=== PATIENT | male | born 1950 | race Caucasian/White ===

== ENCOUNTER → 2022-03-30 16:07 | Outpatient (BNVA) | payer MEDICARE, SELFPAY | PROVIDERS: Visit Provider Nurse Practitioner Family | DX: F41.9 Anxiety disorder, unspecified (principal); G20 Parkinson's disease | CPT/HCPCS: 99212 ==

== ENCOUNTER → 2022-11-07 15:08 | Outpatient (BNVA) | payer MEDICARE, SELFPAY | PROVIDERS: Visit Provider Nurse Practitioner Family | DX: G20 Parkinson's disease (principal); K59.00 Constipation, unspecified; F41.9 Anxiety disorder, unspecified | CPT/HCPCS: 99212 ==

== ENCOUNTER → 2023-02-12 15:01 | Outpatient (BNVA) | payer MEDICARE, SELFPAY | PROVIDERS: Visit Provider Nurse Practitioner Family | DX: G20 Parkinson's disease (principal); F41.9 Anxiety disorder, unspecified | CPT/HCPCS: 99212 ==

== ENCOUNTER → 2023-02-14 16:12 | Outpatient (BNVA) | payer MEDICARE, SELFPAY | PROVIDERS: Visit Provider Nurse Practitioner Family | DX: K59.03 Drug induced constipation (principal); R10.13 Epigastric pain; G20 Parkinson's disease; F41.9 Anxiety disorder, unspecified | CPT/HCPCS: 99202 ==

== ENCOUNTER 2023-03-30 13:35 | Outpatient (AMB) | payer MEDICARE, SELFPAY ==
--- NOTE | 2023-03-30 13:37 | MHC.OFFVIS ---
Intake Vital Signs 03/30/23 13:38 Height 5 ft 10 in Weight 150 lb 6 oz BMI 21.6 BP 108/70 Blood Pressure Location Lt brachial Position Sitting Pulse 69 Pulse Source Pulse Oximeter Pulse Oximetry (%) 94 Oxygen Delivery Method Room Air Intake Visit Reasons: Follow up for Parkinson's - Confirmed Intake Note: Pt presents as a f/u for Parkinsons. Pt states shaking, and real bad anxiety. Pt states he hasn't seen his son or talked to him on the phone in over 10 years. Pt states the new med is making a good difference. pt states he feels good today. 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 Accompanied by: Nephew or Niece Allergies aspirin [Aspirin] Allergy (Unknown, Verified 03/30/23 13:42) UNKNOWN Penicillins Allergy (Unknown, Verified 03/30/23 13:42) UNKNOWN Medication List - Last Reconciled 03/30/23 by DANIELA Mauricio carbidopa-levodopa 36.25-145 mg ER (Rytary) 3 caps QID at 8am, 12pm, 4pm, 8 pm, and 1 cap daily at midnight orally 30 days citalopram 10 mg PO DAILY ketoconazole 2% topical lorazepam 0.5 - 1 mg orally 5 times a day 30 days magnesium hydroxide (Milk of Magnesia) 5 mL PO DAILY PRN magnesium oxide 400 mg PO BEDTIME pimavanserin (Nuplazid) 34 mg PO DAILY 30 days polyethylene glycol 3350 (Miralax) 17 grams PO DAILY 30 days quetiapine 25 mg PO BEDTIME sennosides (Natural Senna Laxative) 17.2 mg (2 x 8.6 mg) PO BEDTIME HPI HPI Comments History of Present Illness Details 72-yr-old male presents for f/u visit, pt is accompanied by his nephew. Pt denies any significant interval medical history changes. However, he did call the office last week, after he had a panic attack while walking into a grocery store and had to leave. Dr Antonio started him on Citalopram 10mg qd- which he and his nephew feels like it is helping some already. He tried to decrease the Lorazepam by 1/2 tab per day and states he did not tolerate. Today, pt's primary concern is r/t his relationship w/ his son- who does not speak to him. He evidently was seeing a therapist, but stopped once the therapist declined to directly call his son on behalf of the pt. Pt does state that tremor is managed w/ his Rytary- although it varies. No bothersome hallucinations. Pt's current PD medication regimen: Rytary 3 caps at 8-12-4-8 and 1 cap at 12am. May take 1 extra caps per day. Do medication effects last between doses: Sometimes wears off PFSH Surgical History No pertinent past surgical history Family History Mother Cancer Social History (Updated 03/30/23 @ 13:43 by Jana Richardson CMA) Alcohol intake: never Patient Tobacco Use Status: Never used Tobacco Review of Systems Const All systems reviewed & are unremarkable except as noted in HPI and below Physical Exam Vital Signs: Last Vital Signs Pulse 69 03/30/23 13:38 BP 108/70 03/30/23 13:38 Pulse Ox 94 03/30/23 13:38 Oxygen Delivery Method Room Air 03/30/23 13:38 BMI result Body Mass Index 21.6 Const General: cooperative and no acute distress Orientation/consciousness: oriented to person, oriented to place and oriented to time HEENT Face and sinus: Yes other (Decreased expression and blink) Resp Effort & Inspection: normal respiratory effort and able to speak in complete sentences Cardio Rate: regular rate Rhythm: regular rhythm Neuro Other: Expression: Decreased expression and blink Voice: Soft Tremor: BUE rest tremor Tone: Mild UE tone Dyskinesia: None FFM: Bradykinesia Foot taps: Bradykinesia Gait: Stands easily w/ hands, slight stoop, decreased arm swing, shorter steps, steady gait. Psych: Perseverating, crying at times. General: oriented to person, oriented to place and oriented to time Psych Mental Status: mental status grossly normal Speech and movement: Normal speech and movement present Affect: normal affect Attitude: cooperative Thought process: Normal thought process present Assessment & Plan Assessment & Plan (1) Parkinson's disease: Comment: Ryann positive (2014) Code(s): G20 - Parkinson's disease (2) Anxiety: Code(s): F41.9 - Anxiety disorder, unspecified Plan Continue Citalopram 10mg qd- nephew to update me in 6 weeks w/ status update. For now, continue Lorazepam 1mg 5 x's per day- decrease by 0.5mg per day every 1-2 weeks. Pt should continue to see a psychologist. Continue Rytary 145mg cap- 3 caps QID and 1 cap q 12am. He may take max of 2 extra caps per day. Take w/ small amt CHO. Continue Quetiapine 25mg qhs. Continue Nuplazid 34mg qd. Miralax /-1/2 dose qd- hold for loose stools. f/u in 3 months or sooner prn Coding Level of Care Code Est Pt Level 4 (47639) Diagnoses Parkinson's disease G20 Anxiety F41.9
[2023-03-30 13:38] VITALS: BP 108/70; PULSE 69; O2SAT 94; BMI 21.6
== END 2023-03-30 14:31 | disposition home or self-care (01) ==
PROVIDERS: Visit Provider Nurse Practitioner Family
DX: G20 Parkinson's disease (principal); F41.9 Anxiety disorder, unspecified
CPT/HCPCS: 99214

== ENCOUNTER → 2023-03-30 13:35 | Outpatient (BNVA) | payer MEDICARE, SELFPAY | PROVIDERS: Visit Provider Nurse Practitioner Family | DX: G20 Parkinson's disease (principal); F41.9 Anxiety disorder, unspecified | CPT/HCPCS: 99212 ==

== ENCOUNTER 2023-05-22 14:18 | Outpatient (AMB) | payer MEDICARE, SELFPAY ==
--- NOTE | 2023-05-22 14:33 | A.OFFVIS_ITS ---
Intake Vital Signs 05/22/23 14:34 Height 5 ft 10 in Weight 141 lb 1.533 oz BMI 20.2 BP 108/64 Blood Pressure Location Lt brachial Position Sitting Pulse 69 Intake Visit Reasons: Follow up Constipation Intake Note: Jameel presents in the office as a follow up for constipation. CC: He has some on and off again stomach pains. Nephew is not sure if it is due to his Parkinson's or the medication. He states that a couple weeks ago his BM were like brown water. He states that he is scared because he is having issues with his breathing. 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 Patient was encouraged to take MiraLax every day in the morning and take magnesium at night time. However if patient will continue to have constipation we can send him script for senna. Patient was also encouraged to increase fluid intake and activity to promote better bowel motility. Postprandial epigastric pain Patient reports postprandial abdominal discomfort. Will start him on Pepcid. Will check lipase, CMP, check vitamin B12, folate, vitamin-D level. Will start him on famotidine. Patient can take that in the morning before breakfast. Discu ssed with patient and his nephew about avoiding dietary triggers in late night snacking. Staying upright for 3 hours after meals discussed with patient. I will see patient in 5 weeks, sooner on as needed basis. Patient is agreeable to this plan and verbalizes understanding of instructions. He was given the opportunity to ask questions and all questions answered. TODAY'S VISIT Patient is here today for follow-up. Patient is accompanied by his nephew. Patient reports that he continues to have constipation. However patient does admit that occasionally he will have loose stools. Patient reports to be constipated for couple of days and then he will have watery stool. Patient denies melena, hematochezia, unintentional weight loss or ribbon like stools. Patient reports to be very anxious. Trying to figure out moving to [place]. Patient reports abdominal bloating and discomfort. Patient feels like the pain moves around feels more like cramping. Patient denies any nausea or vomiting. Patient denies any dyspepsia, dysphagia or odynophagia. [facility] Surgical History No pertinent past surgical history Family History Mother Cancer Social History Alcohol intake: never Patient Tobacco Use Status: Never used Tobacco Review of Systems Const Denies weight gain and Denies weight loss ENT Reports no additional complaints, Denies dysphagia and Denies odynophagia Card Reports no additional complaints Resp Reports no additional complaints GI Denies abdominal pain, Denies belching, Denies melena, Denies bloating, Denies change in bowel habits, Reports constipation, Denies dysphagia, Denies excessive flatus, Denies dyspepsia, Denies heartburn, Denies diarrhea, Reports loose stools (Occasional), Denies nausea, Denies odynophagia and Denies vomiting Reports no additional complaints Musc Reports no additional complaints Neuro Reports no additional complaints Psych Reports no additional complaints Endo Reports no additional complaints Physical Exam Vital Signs: Last Vital Signs Pulse 69 05/22/23 14:34 BP 108/64 05/22/23 14:34 BMI result Body Mass Index 20.2 Const General: healthy appearing, no acute distress and well developed Nutritional Appearance: well nourished Orientation/consciousness: patient oriented x3 HEENT Head: Yes normal to inspection, Yes normocephalic and Yes atraumatic Face and sinus: Yes normal facial exam Mouth: Normal oral and palatal mucosa present Throat: Yes posterior oropharynx normal, Yes tonsils normal and Yes uvula midline Eyes General: appearance normal, both eyes and all related structures Neck Neck: Yes normal visual inspection, Yes full ROM and Yes trachea midline Thyroid: Thyroid normal Resp Effort & Inspection: normal respiratory effort, able to speak in complete sentences, no tracheal deviation and symmetric chest movement Auscultation: clear to auscultation bilaterally Cardio Rate: regular rate Heart sounds: S1 normal heart sound present and S2 normal heart sound present GI Inspection: Yes normal to inspection and No distended Palpation (GI): Soft to palpation, not firm, nontender and No hepatosplenomegaly present Auscultation: normal bowel sounds General: Yes no CVA tenderness Back/Spine/Pelvis Back: no CVA tenderness Skin General skin exam: elasticity normal, turgor normal and dry skin Neuro General: patient oriented x3 Psych Appearance: grossly normal Mental Status: mental status grossly normal Assessment & Plan Assessment & Plan (1) Constipation: Code(s): K59.00 - Constipation, unspecified Qualifiers: Constipation type: drug induced constipation Qualified Code(s): K59.03 - Drug induced constipation (2) Postprandial epigastric pain: Code(s): R10.13 - Epigastric pain (3) Abdominal bloating: Code(s): R14.0 - Abdominal distension (gaseous) Plan: Patient is unable to move his bowels completely. Will start him on Dulcolax tablets. Patient's nephew will call the office if patient will continue to be constipated. Discussed with patient eating more fiber. Avoid lactose. Low FODMAP diet discussed with patient and his nephew. List of food recommended as well as list of food to avoid given to patient. Patient was encouraged to going get his labs done that were ordered last visit. I will see patient in 3 months, sooner on as needed basis. Patient is agreeable to this plan and verbalizes understanding of instructions. He was given the opportunity to ask questions and all questions answered. Thank you for allowing me to participate in his care Please make sure that patient gets his blood work done before his next appointment Medications: New bisacodyl (Dulcolax (bisacodyl)) 10 mg (2 x 5 mg) PO BEDTIME 180 tabs 4RF Coding Level of Care Code Est Pt Level 4 (19094) Diagnoses Drug-induced constipation K59.03 Constipation type: drug induced constipation Postprandial epigastric pain R10.13 Abdominal bloating R14.0 Time Spent (min) 35 Comment 20 minutes spent with patient and additional 15 minutes spent reviewing his records.
[2023-05-22 14:34] VITALS: BP 108/64; PULSE 69; BMI 20.2
== END 2023-05-22 15:17 | disposition home or self-care (01) ==
PROVIDERS: Visit Provider Nurse Practitioner Family
DX: K59.03 Drug induced constipation (principal); R10.13 Epigastric pain; R14.0 Abdominal distension (gaseous)
CPT/HCPCS: 99214

== ENCOUNTER → 2023-05-22 14:18 | Outpatient (BNVA) | payer MEDICARE, SELFPAY | PROVIDERS: Visit Provider Nurse Practitioner Family | DX: K59.03 Drug induced constipation (principal); R10.13 Epigastric pain; R14.0 Abdominal distension (gaseous) | CPT/HCPCS: 99212 ==

== ENCOUNTER 2023-06-26 13:17 | Emergency (ER) | payer MEDICARE, SELFPAY ==
--- NOTE | ~2023-06-26 | XR_ITS ---
EXAMINATION: XR ABDOMEN KUB CLINICAL INDICATION: Rule out obstruction COMPARISON: None available. TECHNIQUE: AP view of the abdomen. FINDINGS: No dilated large or small bowel loops are evident. There is no detected free air. No radiopaque calculi are evident. The patient has undergone prior study lower lumbar laminectomy and fusion. Degenerative changes are noted in both hip joints. XR/XR KUB IMPRESSION: Normal bowel gas pattern.
--- NOTE | 2023-06-26 13:12 | PC.NURSE ---
pt has not arrived yet. awaiting
[2023-06-26 13:23] VITALS: BP 123/72; BP 135/65; PULSE 66; PULSE 70; RESP 20; TEMP 36.7; O2SAT 98; O2SAT 99; BMI 18.7
[2023-06-26 13:34] VITALS: BP 120/65; PULSE 68; RESP 16; TEMP 36.7; O2SAT 98
--- NOTE | 2023-06-26 15:31 | MHC.EDTECH ---
Nurse will draw labs.
[2023-06-26 15:42] VITALS: BP 103/67; PULSE 63; RESP 14; TEMP 36.7; O2SAT 96
--- NOTE | 2023-06-26 15:43 | PC.NURSE ---
md guerra came to bed to pepe pt- blood sent
[2023-06-26 15:46] LABS: MANUAL DIFF FLAG NO
[2023-06-26 15:48] LABS: Basophils Percent Auto 0.4 % (0-2); Eosinophils Percent Auto 0.7 % (0-4); Hematocrit 35.3 % (42.0-52.0); Hemoglobin 11.7 g/dl (14.0-18.0); Imm Gran Abs Auto 0.01 X10*3/uL (0.00-0.03); Imm Gran Pct Auto 0.2 % (0.0-0.4); Lymphocytes Absolute Auto 0.6 X10*3/uL (1.2-4.9); Lymphocytes Percent Auto 12.6 % (20-40); Mean Corpuscular HGB Conc 33.1 g/dl (31.0-36.0); Mean Corpuscular Hemoglobin 29.8 pg (27.0-33.0); Mean Corpuscular Volume 89.8 fL (80.0-98.0); Mean Platelet Volume 10.3 fL (9.4-12.4); Monocytes Absolute Auto 0.2 X10*3/uL (0.1-1.2); Monocytes Percent Auto 5.4 % (2-11); Neutrophils Absolute Auto 3.6 x10*3/uL (2.0-8.3); Neutrophils Percent Auto 80.7 % (45-73); Platelet Count 142 X10*3/uL (160-400); Red Blood Count 3.93 X10*6/uL (4.60-5.80); Red Cell Distribution Width 12.6 % (11.0-16.0); White Blood Count 4.5 X10*3/uL (4.8-10.8)
[2023-06-26 16:00] LABS: Lipase 24 U/L (8-78)
--- NOTE | 2023-06-26 16:00 | ED_ITS ---
HPI - General Adult General Chief complaint: General Medical Stated complaint: UPPER ABD PAIN, X2 WEEKS,CONSTIPATION PER EMS Time Seen by Provider: 06/26/23 15:30 Source: patient Mode of arrival: ambulatory Limitations: no limitations History of Present Illness HPI narrative: Patient felt constipated, took 2 ducolax and had increasing epigastric pain Onset (ago): hour(s) Related Data Home Medications Medication Instructions Recorded Confirmed ketoconazole 2 % shampoo topical 11/07/22 03/30/23 quetiapine 25 mg tablet 25 mg PO BEDTIME 11/07/22 03/30/23 magnesium hydroxide 400 mg/5 mL 5 ml PO DAILY PRN 02/12/23 03/30/23 oral suspension (Milk of Magnesia) lorazepam 1 mg tablet 0.5 - 1 mg PO 5XD 06/26/23 magnesium oxide 400 mg (241.3 mg 400 mg PO BEDTIME 06/26/23 magnesium) tablet Previous Rx's Medication Instructions Recorded pimavanserin 34 mg capsule 34 mg PO DAILY 30 days #30 caps 12/26/22 (Nuplazid) polyethylene glycol 3350 17 17 g PO DAILY 30 days #510 grams 02/14/23 gram/dose oral powder (Miralax) carbidopa ER 36.25 mg-levodopa 145 See Rx Instructions PO .COMPLEX 30 02/21/23 mg capsule,extended release days #390 caps (Rytary) bisacodyl 5 mg tablet,delayed 10 mg (2 x 5 mg) PO BEDTIME #180 05/22/23 release (Dulcolax (bisacodyl)) tabs citalopram 10 mg tablet 10 mg PO DAILY #30 tabs 05/24/23 pantoprazole 40 mg tablet,delayed 40 mg PO DAILY #20 tabs 06/26/23 release (Protonix) Allergies Allergy/AdvReac Type Severity Reaction Status Date / Time aspirin [Aspirin] Allergy Unknown UNKNOWN Verified 05/22/23 14:40 Penicillins Allergy Unknown UNKNOWN Verified 05/22/23 14:40 Review of Systems 2 Review of Systems: Yes all other systems are reviewed and are negative Neurologic: Denies Sensory deficit (Neuro) [facility] Past Medical History Surgical History No pertinent past surgical history Family History Family History Mother Cancer Social History Social History Alcohol intake: never Patient Tobacco Use Status: Never used Tobacco Smoked in Last 30 Days: No Use of substances other than those prescribed or required for medical reasons: No Advance Directives: Yes Advance Directives Information Provided: Yes Advance Directives on File: No Physical Exam ED Vital Signs: Vital Signs - 24 hr 06/26/23 13:23 06/26/23 13:34 06/26/23 15:42 Temperature 98.1 F 98.1 F 98.1 F Pulse Rate 66 68 63 Respiratory Rate 20 16 14 Blood Pressure 135/65 120/65 103/67 Pulse Oximetry 98 98 96 Oxygen Delivery Method Room Air Room Air Room Air 06/26/23 16:09 Temperature Pulse Rate 62 Respiratory Rate 12 Blood Pressure 111/76 Pulse Oximetry 96 Oxygen Delivery Method Room Air BMI result Body Mass Index 18.7 Const Other: ridgid looking older than stated age Nutritional Appearance: cachectic Orientation/consciousness: oriented to person and patient oriented x3 Limitations: no limitations HENMT Head: Yes normal to inspection Ears: external ears normal General nose exam: Normal external nose present Mouth: Normal oral and palatal mucosa present and oropharynx normal Throat: Yes posterior oropharynx normal Eyes General: appearance normal, both eyes and all related structures Neck Neck: Yes normal visual inspection Chest Chest palpation & inspection: normal inspection of the chest Resp Auscultation: clear to auscultation bilaterally Cardio Jugular venous distension: no JVD Rate: regular rate Rhythm: regular rhythm Heart sounds: S1 normal heart sound present and S2 normal heart sound present GI Other: scaphoid mild epigastric tenderness Auscultation: normal bowel sounds General: Yes no CVA tenderness Back/Spine/Pelvis Back: no CVA tenderness Skin General skin exam: no rashes or lesions noted Neuro Other: diffuse rigidity from parkinsonism General: oriented to person and patient oriented x3 Cranial nerves: Yes CN's II-XII intact bilaterally Sensory Exam: No Sensory deficit (Neuro) Extrem General: Yes normal to inspection Psych Appearance: grossly normal Medications Administered Discontinued Medications Generic Name Dose Route Start Last Admin Trade Name Freq PRN Reason Stop Dose Admin Famotidine 20 mg 06/26/23 15:38 06/26/23 16:07 Famotidine 20 Mg Tablet PO 06/26/23 15:39 20 mg ONCE ONE Administration Medical Decision Making Differential Diagnosis Differential Diagnoses: The differential diagnosis associated with the presentation includes (pancreatitis, gastritis, ulcer disease, sbo) Admission/Observation Consideration of admission/observation: Escalation of care including admission/observation considered (upon arrival patient was considered for admission) Lab Data 06/26/23 15:40 06/26/23 15:40 Labs: Lab Results 06/26/23 Range/Units 15:40 WBC 4.5 L (4.8-10.8) X10*3/uL RBC 3.93 L (4.60-5.80) X10*6/uL Hgb 11.7 L (14.0-18.0) g/dl Hct 35.3 L (42.0-52.0) % MCV 89.8 (80.0-98.0) fL MCH 29.8 (27.0-33.0) pg MCHC 33.1 (31.0-36.0) g/dl RDW 12.6 (11.0-16.0) % Plt Count 142 L (160-400) X10*3/uL MPV 10.3 (9.4-12.4) fL Immature Gran % (Auto) 0.2 (0.0-0.4) % Neut % (Auto) 80.7 H (45-73) % Lymph % (Auto) 12.6 L (20-40) % Gilchrist % (Auto) 5.4 (2-11) % Eos % (Auto) 0.7 (0-4) % Baso % (Auto) 0.4 (0-2) % Lymph # (Auto) 0.6 L (1.2-4.9) X10*3/uL Gilchrist # (Auto) 0.2 (0.1-1.2) X10*3/uL Eos # (Auto) 0.0 (0.0-0.4) X10*3/uL Baso # (Auto) 0.0 (0.0-0.2) X10*3/uL Abs Immat Gran (auto) 0.01 (0.00-0.03) X10*3/uL Absolute Neuts (auto) 3.6 (2.0-8.3) x10*3/uL Absolute Nucleated RBC 0.000 (0.0-0.012) X10*3/uL Nucleated RBC % (auto) 0.0 (0.0-0.2) /100WBC Sodium 140 (135-145) mmol/L Potassium 4.0 (3.3-5.1) mmol/L Chloride 104 (96-108) mmol/L Carbon Dioxide 32 H (22-29) mmol/L Anion Gap 8 L (12-20) BUN 15 (9-16) mg/dL Creatinine 0.70 (0.5-1.4) mg/dL Estim Creat Clear Calc 80.7 Estimated GFR > 60 Random Glucose 107 (60-115) mg/dL Calcium 8.7 (8.4-10.2) mg/dL Total Bilirubin 0.4 (0.0-1.0) mg/dL AST 12 (5-37) U/L ALT < 5 (0-40) U/L Alkaline Phosphatase 73 (39-117) U/L Total Protein 6.1 L (6.5-8.0) g/dL Albumin 3.8 (3.5-5.0) g/dL Lipase 24 (8-78) U/L Tests considered The following testing was considered but not selected: CT of abdomen considered but no fever, no WBC, no pancreatitis Chronic Conditions Patient?s care impacted by: Other (parkinsonism) Discharge Plan Discharge Clinical Impression: Gastritis Patient Disposition: Still a Patient Instructions: Gastritis (ED) Prescriptions: New pantoprazole [Protonix] 40 mg tablet,delayed release (DR/EC) 40 mg PO DAILY Qty: 20 0RF No Action Nuplazid 34 mg capsule 34 mg PO DAILY 30 Days Qty: 30 6RF Rytary 36.25-145 mg capsule, extended release See Rx Instructions PO .COMPLEX 30 Days Qty: 390 6RF Rx Instructions: 3 caps QID at 8am, 12pm, 4pm, 8 pm, and 1 cap daily at midnight orally citalopram 10 mg tablet 10 mg PO DAILY Qty: 30 0RF magnesium oxide 400 mg (241.3 mg magnesium) tablet 400 mg PO BEDTIME lorazepam 1 mg tablet 0.5 - 1 mg PO 5XD Rx Instructions: 1 mg orally 5 times a day; quetiapine 25 mg tablet 25 mg PO BEDTIME ketoconazole 2 % shampoo topical bisacodyl [Dulcolax (bisacodyl)] 5 mg tablet,delayed release (DR/EC) 10 mg PO BEDTIME Qty: 180 4RF magnesium hydroxide [Milk of Magnesia] 400 mg/5 mL suspension 5 ml PO DAILY PRN polyethylene glycol 3350 [Miralax] 17 gram/dose powder 17 g PO DAILY 30 Days Qty: 510 3RF Referrals: Physician,None [Primary Care Provider] - 5 days
[2023-06-26 16:03] LABS: Alanine Aminotransferase < 5 U/L (0-40); Albumin Level 3.8 g/dL (3.5-5.0); Alkaline Phosphatase 73 U/L (39-117); Anion Gap 8 (12-20); Aspartate Amino Transferase 12 U/L (5-37); Bilirubin Total 0.4 mg/dL (0.0-1.0); Blood Urea Nitrogen 15 mg/dL (9-16); Calcium 8.7 mg/dL (8.4-10.2); Carbon Dioxide 32 mmol/L (22-29); Chloride 104 mmol/L (96-108); Creatinine Clr Calc Pharmacy 80.7; Estimated Glomerular Filt Rate > 60; Glucose Random 107 mg/dL (60-115); Sodium 140 mmol/L (135-145); Total Protein 6.1 g/dL (6.5-8.0)
[2023-06-26] MEDS: Famotidine 20 MG TABLET PO (16:07)
[2023-06-26 16:09] VITALS: BP 111/76; PULSE 62; RESP 12; O2SAT 96
--- NOTE | 2023-06-26 16:17 | PHA.MEDREC ---
Pharmacy Consult ? Medication Reconciliation Pharmacy has completed the medication reconciliation. Patient reported specific times for all his medications. Report stop taking stool softener that was recently prescribed, bisacodyl. Patient stated he takes milk of mag every day at noon. Patient has Pimavanserin and Rytary with him. Pat Matta, RadhaD
[2023-06-26 17:44] VITALS: BP 121/64; PULSE 97; O2SAT 98
== END 2023-06-26 20:27 | disposition home or self-care (01) ==
PROVIDERS: Emergency Provider Emergency Medicine
DX: K29.70 Gastritis, unspecified, without bleeding (principal); R10.13 Epigastric pain; G20.A1 Parkinson's disease without dyskinesia, without mention of fluctuations; Z79.899 Other long term (current) drug therapy
CPT/HCPCS: 36415; 74018; 80053; 83690; 85025; 99283; 99284

== ENCOUNTER 2023-07-17 14:13 | Outpatient (AMB) | payer MEDICARE, SELFPAY ==
--- NOTE | 2023-07-17 14:14 | MHC.OFFVIS ---
Intake Vital Signs 07/17/23 14:15 Height 5 ft 10 in Weight 139 lb BMI 19.9 BP 116/62 Blood Pressure Location Rt brachial Position Sitting Pulse 68 Pulse Source Pulse Oximeter Pulse Oximetry (%) 99 Oxygen Delivery Method Room Air Intake Visit Reasons: Follow up for Parkinson [phone] Intake Note: Patient presents for follow up parkinson. Allergies aspirin [Aspirin] Allergy (Unknown, Verified 07/17/23 14:17) UNKNOWN Penicillins Allergy (Unknown, Verified 07/17/23 14:17) UNKNOWN HPI HPI Comments History of Present Illness Details 72-yr-old male presents for f/u visit, accompanied by his nephew, Juanito. Pt's primary concerns are: he continues to have upper GI burning pain, constipation a/w anxiety and increased tremor. Today he deneis any LLQ abd pain. The pain subsides some after having a BM but not always. He has had a 10 lb wt loss over the alst 6 months. He has seen [facility]- who suggested optimizing fluids, physical activity, and bowel regimen. He has had [facility] and [facility] evals. Pt states the work-up was normal. He now feels that using dulcolax suppository every few days, pepto-bismal 1 tsp- states can be helpful, but last [facility] visit was at end of Jun. He can still be anxious- nephew states it is unclear if anxiety is causing GI issues or GI issues are causing anxiety and tremor. He can be impulsive- for instance may have a strong urge to paint a room. Nephew is worried about some decreased insight- for instance recently was using paint thinner to remove epoxy from his fingers and wipe down his washer/dryer. He can still have hallucinations. He stopped the Citalopram- was causing worsening behaviors, angry. 06/26/23, XR/XR KUB IMPRESSION: Normal bowel gas pattern. 07/02/23, IMPRESSION: Moderate amount of stool throughout the colon. No acute abnormality. Chronically fractured L5 pedicle screws with slightly increased displacement of the left pedicular screw when compared to prior examination. Chronic degenerative changes at L4-L5 and L5-S1 as described above. PFSH Surgical History No pertinent past surgical history Family History Mother Cancer Social History Alcohol intake: never Patient Tobacco Use Status: Never used Tobacco Review of Systems Const All systems reviewed & are unremarkable except as noted in HPI and below Physical Exam Vital Signs: Last Vital Signs Pulse 68 07/17/23 14:15 BP 116/62 07/17/23 14:15 Pulse Ox 99 07/17/23 14:15 Oxygen Delivery Method Room Air 07/17/23 14:15 BMI result Body Mass Index 19.9 Const General: cooperative and no acute distress Resp Effort & Inspection: normal respiratory effort and able to speak in complete sentences Neuro Other: General: A&O Expression: Decreased expression and blink Voice: Soft Tremor: BUE rest tremor Tone: Mild UE tone Dyskinesia: None FFM: Bradykinesia Foot taps: Bradykinesia Gait: Stands easily w/ hands, slight stoop, decreased arm swing, shorter steps, steady gait. Psych: Pleasant affect. Assessment & Plan Assessment & Plan (1) Parkinson's disease without dyskinesia: Comment: Ryann positive (2014) Code(s): G20.A1 - Parkinson's disease without dyskinesia, without mention of fluctuations (2) Anxiety: Code(s): F41.9 - Anxiety disorder, unspecified (3) Constipation: Code(s): K59.00 - Constipation, unspecified Qualifiers: Constipation type: drug induced constipation Qualified Code(s): K59.03 - Drug induced constipation Plan Pt stopped Citalopram 10mg qd- not tolerated- caused mood changes. For now, continue Lorazepam 1mg 5 x's per day. Pt should continue to see a psychologist. Continue Rytary 145mg cap- 3 caps QID and 1 cap q 12am. He may take max of 2 extra caps per day. Take w/ small amt CHO. Continue Quetiapine 25mg qhs. Continue Nuplazid 34mg qd. For GI concerns- I will reach out to GI w/ ? further work-up/next steps. f/u in 3 months or sooner prn Coding Level of Care Code Est Pt Level 4 (50632) Diagnoses Parkinson's disease without dyskinesia G20.A1 Anxiety F41.9 Drug-induced constipation K59.03 Constipation type: drug induced constipation
[2023-07-17 14:15] VITALS: BP 116/62; PULSE 68; O2SAT 99; BMI 19.9
== END 2023-07-17 15:16 | disposition home or self-care (01) ==
PROVIDERS: Visit Provider Nurse Practitioner Family
DX: G20.A1 Parkinson's disease without dyskinesia, without mention of fluctuations (principal); F41.9 Anxiety disorder, unspecified; K59.03 Drug induced constipation
CPT/HCPCS: 99214

== ENCOUNTER → 2023-07-17 14:13 | Outpatient (BNVA) | payer MEDICARE, SELFPAY | PROVIDERS: Visit Provider Nurse Practitioner Family | DX: G20.A1 Parkinson's disease without dyskinesia, without mention of fluctuations (principal); K59.03 Drug induced constipation; F41.9 Anxiety disorder, unspecified | CPT/HCPCS: 99212 ==

== ENCOUNTER 2023-09-17 14:34 | Outpatient (AMB) | payer MEDICARE, SELFPAY ==
[2023-09-17 14:36] VITALS: BP 131/65; PULSE 69; BMI 19.8
--- NOTE | 2023-09-17 14:36 | A.OFFVIS_ITS ---
Intake Vital Signs 09/17/23 14:36 Height 5 ft 10 in Weight 138 lb 0.15 oz BMI 19.8 BP 131/65 Blood Pressure Location Lt brachial Position Sitting Pulse 69 Pulse Source Pulse Oximeter Intake Visit Reasons: 3 month follow up Intake Note: Pt presents to the office today for a 3 month follow up for stomach bloating. Pt states his stomach is bloated all the time. Pt states he is having trouble breathing but they think its due to his parkinsons. Pts nephew states that Jameel has stomach pain everyday in his upper abdomen. Pt states he does have nausea but no vomiting. He states he does have constipation occasionally. Pt states he does take dulcolax that helps. Allergies aspirin [Aspirin] Allergy (Unknown, Verified 09/17/23 14:40) UNKNOWN Penicillins Allergy (Unknown, Verified 09/17/23 14:40) UNKNOWN HPI 3 month follow up HPI Details LAST VISIT: Constipation Postprandial epigastric pain Abdominal bloating Patient is unable to move his bowels completely. Will start him on Dulcolax tablets. Patient's nephew will call the office if patient will continue to be constipated. Discussed with patient eating more fiber. Avoid lactose. Low FODMAP diet discussed with patient and his nephew. List of food recommended as well as list of food to avoid given to patient. Patient was encouraged to going get his labs done that were ordered last visit. I will see patient in 3 months, sooner on as needed basis. Patient is agreeable to this plan and verbalizes understanding of instructions. He was given the opportunity to ask questions and all questions answered. ? Thank you for allowing me to participate in his care ? Please make sure that patient gets his blood work done before his next appointment Plan Medications New bisacodyl (Dulcolax (bisacodyl)) 10 mg (2 x 5 mg) PO BEDTIME 180 tabs 4RF TODAY'S VISIT Patient is here today for follow-up. Patient is accompanied by his nephew who is also his CERTIFIED HEARING INSTRUMENT DISPENSER. Patient reports that he has trouble moving his bowels and the only thing that works is Dulcolax suppository. Patient states that he goes to the bathroom after taking almost immediately, however right after he goes to the bathroom he takes Pepto patient stopped taking pantoprazole. Denies any dyspepsia, dysphagia or odynophagia. Has not tried taking Dulcolax tablets as suggested in the past. Patient is following up with Neurology. Currently his go of antiparkinsonian medication was increased. Patient does have occasional tremors. Patient is waiting to hear from his dentist about partial dentures. Patient denies any melena, hematochezia, unintentional weight loss or ribbon like stools. Patient reports frequent bloating. Patient stopped drinking lactose milk, however he reports that he is eating cereal and lots of wheat products. FOR[facility]LY [facility] Surgical History No pertinent past surgical history Family History Mother Cancer Social History Alcohol intake: never Patient Tobacco Use Status: Never used Tobacco Review of Systems Const Denies weight gain and Denies weight loss ENT Reports no additional complaints, Denies dysphagia and Denies odynophagia Card Reports no additional complaints Resp Reports no additional complaints GI Reports abdominal pain (upper abdomen), Denies belching, Denies melena, Reports bloating, Denies change in bowel habits, Reports constipation, Denies dysphagia, Denies excessive flatus, Denies dyspepsia, Denies heartburn, Denies diarrhea, Denies loose stools, Denies nausea, Denies odynophagia and Denies vomiting Reports no additional complaints Musc Reports no additional complaints Neuro Reports no additional complaints Psych Reports no additional complaints Endo Reports no additional complaints Physical Exam Vital Signs: Last Vital Signs Pulse 69 09/17/23 14:36 BP 131/65 09/17/23 14:36 BMI result Body Mass Index 19.8 Const General: healthy appearing, no acute distress and well developed Nutritional Appearance: well nourished Orientation/consciousness: patient oriented x3 Resp Effort & Inspection: normal respiratory effort, able to speak in complete sentences, no tracheal deviation and symmetric chest movement Auscultation: clear to auscultation bilaterally Cardio Rate: regular rate GI Inspection: Yes normal to inspection and No distended Palpation (GI): Soft to palpation, not firm, nontender and No hepatosplenomegaly present Auscultation: normal bowel sounds General: Yes no CVA tenderness Back/Spine/Pelvis Back: no CVA tenderness Skin General skin exam: elasticity normal, turgor normal and dry skin Neuro General: patient oriented x3 Psych Appearance: grossly normal Mental Status: mental status grossly normal Assessment & Plan Assessment & Plan (1) Constipation: Code(s): K59.00 - Constipation, unspecified Qualifiers: Constipation type: drug induced constipation Qualified Code(s): K59.03 - Drug induced constipation (2) Postprandial epigastric pain: Code(s): R10.13 - Epigastric pain (3) Abdominal bloating: Code(s): R14.0 - Abdominal distension (gaseous) Plan Patient will start taking Dulcolax tablets daily, 1-2 tablets every evening. Patient was encouraged to increase fluid intake. Patient can take lactose-free protein shakes. Avoid dietary triggers. Low FODMAP diet discussed with patient. Patient does have a list of food to avoid home. Postprandial abdominal bloating script for simethicone sent. I will see patient in 1 month, sooner on as needed basis. Patient is agreeable to this plan and verbalizes understanding of instructions. He was given the opportunity to ask questions and all questions answered. Thank you for allowing me to participate in his care Medications: New simethicone 125 mg PO BID-QID PRN 120 caps 3RF abdominal distention bisacodyl (Dulcolax (bisacodyl)) 10 mg (2 x 5 mg) PO BEDTIME 180 tabs 4RF Discontinued pantoprazole (Protonix) Discontinued Reason: Patient Completed Course 40 mg PO DAILY 20 tabs 0RF Coding Level of Care Code Est Pt Level 3 (07214) Diagnoses Drug-induced constipation K59.03 Constipation type: drug induced constipation Postprandial epigastric pain R10.13 Abdominal bloating R14.0 Time Spent (min) 25 Comment 15 minutes spent with patient and additional 10 minutes spent reviewing his records
== END 2023-09-17 14:59 | disposition home or self-care (01) ==
PROVIDERS: Visit Provider Nurse Practitioner Family
DX: K59.03 Drug induced constipation (principal); R10.13 Epigastric pain; R14.0 Abdominal distension (gaseous)
CPT/HCPCS: 99213

== ENCOUNTER → 2023-09-17 14:34 | Outpatient (BNVA) | payer MEDICARE, SELFPAY | PROVIDERS: Visit Provider Nurse Practitioner Family | DX: R14.0 Abdominal distension (gaseous) (principal); R10.13 Epigastric pain; K59.03 Drug induced constipation; T50.905A Adverse effect of unspecified drugs, medicaments and biological substances, initial encounter | CPT/HCPCS: 99212 ==

== ENCOUNTER 2023-10-16 14:08 | Outpatient (AMB) | payer MEDICARE, SELFPAY ==
--- NOTE | 2023-10-16 14:10 | A.OFFVIS_ITS ---
Intake Vital Signs 10/16/23 14:11 Height 5 ft 10 in Weight 134 lb BMI 19.2 BP 108/74 Blood Pressure Location Rt brachial Position Sitting Pulse 76 Pulse Source Pulse Oximeter Pulse Oximetry (%) 97 Oxygen Delivery Method Room Air Intake Visit Reasons: 3 mo f/u - Parkinson-Conf Intake Note: Patient presents for 3 month follow up parkinson's. Im having issues breathing and shaking like crazy. Allergies aspirin [Aspirin] Allergy (Unknown, Verified 10/16/23 14:18) UNKNOWN Penicillins Allergy (Unknown, Verified 10/16/23 14:18) UNKNOWN Medication List - Last Reconciled 10/16/23 by Berenice Stokes, DANIELA bisacodyl 10 mg [place] DAILY PRN bisacodyl (Dulcolax (bisacodyl)) 10 mg (2 x 5 mg) PO BEDTIME bismuth subsalicylate 525 mg PO DAILY PRN calcium carbonate 500 mg PO BID PRN carbidopa-levodopa 36.25-145 mg ER (Rytary) 3 caps PO 0800,1200,1600,2000 carbidopa-levodopa 36.25-145 mg ER (Rytary) 1 cap PO 0000 lorazepam 1 mg orally 5 x's per day; 1 mg orally 5 times a day; 30 days magnesium hydroxide (Milk of Magnesia) 5 mL PO DAILY@1200 pimavanserin (Nuplazid) 34 mg PO DAILY 30 days quetiapine 25 mg PO DAILY@0000 simethicone 125 mg PO BID-QID PRN HPI HPI Comments History of Present Illness Details 72-yr-old male presents for f/u visit, a ccompanied by his nephew, Juanito. He does not currently have a PCP- again states this com writer is his PCP. He is having more SOB on exertion or when he is late to take his Rytary. Once he has SOB, his mouth is hanging open, and his arms and legs start shaking. He can sit and take breathe breathes over 5 min- which helps. Denies wheezing, coughing. Denies orthopnea, but sleeps in a recliner. His nephew is concerned about pt using harsh chemical cloth printing utility worker- specifically BH- 38 intensive shield cleaner. He is having pain in his feet, legs, and thighs- more so when off. The other day he slipped going down his stairs- nephew states he was running up and down the stairs. Pt continues to struggle with GI s/s- epigastric pain, constipation. He still having crown of head scabs, dry skin. He can still feel sad about still not seeing/speaking to his son. Has had some occasional hallucinations- may see a cat- has insight. He did recently take a CD-LD 25-100mg tab- makes him more compulsive. PFSH Surgical History No pertinent past surgical history Family History Mother Cancer Social History Alcohol intake: never Patient Tobacco Use Status: Never used Tobacco Review of Systems Const All systems reviewed & are unremarkable except as noted in HPI and below Physical Exam Vital Signs: Last Vital Signs Pulse 76 10/16/23 14:11 BP 108/74 10/16/23 14:11 Pulse Ox 97 10/16/23 14:11 Oxygen Delivery Method Room Air 10/16/23 14:11 BMI result Body Mass Index 19.2 Const General: cooperative and no acute distress Resp Effort & Inspection: normal respiratory effort and able to speak in complete sentences Auscultation: clear to auscultation bilaterally Cardio Rate: regular rate Rhythm: regular rhythm Neuro Other: General: A&O Expression: Decreased expression and blink Voice: Soft Tremor: BUE postural tremor Tone: Mild BUE tone Dyskinesia: None FFM: Bradykinesia Foot taps: Bradykinesia Gait: Stands easily w/ hands, slight stoop, decreased arm swing, shorter steps, steady gait. Psych: Pleasant affect. Assessment & Plan Assessment & Plan (1) Parkinson's disease without dyskinesia: Comment: Ryann positive (2014) Code(s): G20.A1 - Parkinson's disease without dyskinesia, without mention of fluctuations (2) Hallucinations: Code(s): R44.3 - Hallucinations, unspecified (3) Constipation: Code(s): K59.00 - Constipation, unspecified Qualifiers: Constipation type: drug induced constipation Qualified Code(s): K59.03 - Drug induced constipation (4) Anxiety: Code(s): F41.9 - Anxiety disorder, unspecified Plan Adjust Rytary 145mg cap from- 3 caps QID and 1 cap q 12am to 3 caps qam, 2 caps QID, and 1 cap q 12am. In hopes this imporves on time and SOB episodes w/o exacerbating hallucinations or compulsive behaviors. If SOB episodes persist/worsen- initiate CV/Resp work-up. Continue Quetiapine 25mg qhs. Continue Nuplazid 34mg qd. For now, continue Lorazepam 1mg 5 x's per day. Consider trial of mood stabilizer and then begin reducing Lorazepam use. Pt should continue to see a psychologist. Avoid all harsh household cloth printing utility worker. Try switching soap to sensitive skin Dove or other unscented soap. avoid anti- microbial/harsh soaps. F/u w/ GI as scheduled. ? f/u in 3 months or sooner prn Medications: Changed From carbidopa-levodopa 36.25-145 mg ER (Rytary) 3 caps QID at 8am, 12pm, 4pm, 8 pm, and 1 cap daily at midnight orally 3 caps PO 0800,1200,1600,2000 To carbidopa-levodopa 36.25-145 mg ER (Rytary) 3 caps qam and then 2 caps QID, and 1 cap q 12am (total 12 caps per day). orally 30 days 360 caps 3RF Coding Level of Care Code Est Pt Level 4 (76935) Diagnoses Parkinson's disease without dyskinesia G20.A1 Hallucinations R44.3 Drug-induced constipation K59.03 Constipation type: drug induced constipation Anxiety F41.9
[2023-10-16 14:11] VITALS: BP 108/74; PULSE 76; O2SAT 97; BMI 19.2
== END 2023-10-16 15:07 | disposition home or self-care (01) ==
PROVIDERS: Visit Provider Nurse Practitioner Family
DX: G20.A1 Parkinson's disease without dyskinesia, without mention of fluctuations (principal); R44.3 Hallucinations, unspecified; K59.03 Drug induced constipation; F41.9 Anxiety disorder, unspecified
CPT/HCPCS: 99214

== ENCOUNTER → 2023-10-16 14:08 | Outpatient (BNVA) | payer MEDICARE, SELFPAY | PROVIDERS: Visit Provider Nurse Practitioner Family | DX: G20.A1 Parkinson's disease without dyskinesia, without mention of fluctuations (principal); R44.3 Hallucinations, unspecified; K59.03 Drug induced constipation; F41.9 Anxiety disorder, unspecified | CPT/HCPCS: 99212 ==

== ENCOUNTER → 2023-12-03 15:42 | Outpatient (BNVA) | payer MEDICARE, SELFPAY | PROVIDERS: Visit Provider Nurse Practitioner Family | DX: G20.A1 Parkinson's disease without dyskinesia, without mention of fluctuations (principal); R10.9 Unspecified abdominal pain; R44.3 Hallucinations, unspecified; R46.89 Other symptoms and signs involving appearance and behavior; F41.9 Anxiety disorder, unspecified | CPT/HCPCS: 99212 ==

== ENCOUNTER 2023-12-03 15:43 | Outpatient (AMB) | payer MEDICARE, SELFPAY ==
--- NOTE | 2023-12-03 15:42 | A.OFFVIS_ITS ---
Vital Signs 12/03/23 15:43 Height 5 ft 10 in Weight 130 lb BMI 18.7 Pulse 68 Pulse Source Pulse Oximeter Pulse Oximetry (%) 99 Oxygen Delivery Method Room Air Intake Visit Reasons: Follow up-CONF Intake Note: Patient presents for follow. patiwent has been having issue with his stomach and hard time breathing Allergies aspirin [Aspirin] Allergy (Unknown, Verified 12/03/23 15:45) UNKNOWN Penicillins Allergy (Unknown, Verified 12/03/23 15:45) UNKNOWN Medication List - Last Reconciled 12/03/23 by DANIELA Mauricio bisacodyl 10 mg ME DAILY PRN bisacodyl (Dulcolax (bisacodyl)) 10 mg (2 x 5 mg) PO BEDTIME bismuth subsalicylate 525 mg PO DAILY PRN calcium carbonate 500 mg PO BID PRN carbidopa-levodopa 36.25-145 mg ER (Rytary) 3 caps qam and then 2 caps QID, and 1 cap q 12am (total 12 caps per day). orally 30 days lorazepam 1 mg orally 5 x's per day; 1 mg orally 5 times a day; 30 days magnesium hydroxide (Milk of Magnesia) 5 mL PO DAILY@1200 pimavanserin (Nuplazid) 34 mg PO DAILY 30 days quetiapine 25 mg PO DAILY@0000 simethicone 125 mg PO BID-QID PRN HPI Comments Details: 73-yr-old male presents for f/u visit, accompanied by his nephew. Pt reports the following interval medical history changes: Pt had another ER evaluation for GI pain 2 days ago. He was advised to start Metronidazole and Cipro for ? infective colituis. Was also given prn Zofran ODT. He has not started Cipro, and has only taken Flagyl 1/2 tab qhs x's 2. Pt's nephew is particulary concerned that after 5:30pm, pt has become hyperfocused on repairing/fixing things around the house. For instance, the other day he tried to spray paint a plate outside at 11pm. Sometimes he is trying to use chemicals or his power tools. Nephew has been able to remove many of the more toxic production tool engineer. We recently tried to decrease the 4pm and 8pm Rytary dose from 3 caps each dose to 2 caps, and Rytary 1 cap at midnight- in hopes it would decrease pt's nocturnal compulsive behaviors. When he has taken the decreased dose, he has had less of these episodes. However, pt is not always consistent w/ this plan. [facility]LY [facility] Medical History (Updated 12/03/23 @ 16:36 by DANIELA Mauricio) Parkinson's disease Surgical History No pertinent past surgical history Family History Mother Cancer Social History Alcohol intake: never Patient Tobacco Use Status: Never used Tobacco Review of Systems Const All systems reviewed & are unremarkable except as noted in HPI and below Physical Exam Vital Signs: Last Vital Signs Pulse 68 12/03/23 15:43 Pulse Ox 99 12/03/23 15:43 Oxygen Delivery Method Room Air 12/03/23 15:43 BMI result Body Mass Index 18.7 Const General: cooperative and no acute distress Nutritional Appearance: thin Resp Effort & Inspection: normal respiratory effort and able to speak in complete sentences Neuro Other: General: A&O Expression: Decreased expression and blink Voice: Soft Tremor: BUE postural tremor Tone: Mild BUE tone Dyskinesia: None FFM: Bradykinesia Foot taps: Bradykinesia Gait: Stands easily w/ hands, slight stoop, decreased arm swing, shorter steps, steady gait. Psych: Pleasant affect. Assessment & Plan Assessment & Plan (1) Parkinson's disease without dyskinesia: Comment: Ryann positive (2014) Code(s): G20.A1 - Parkinson's disease without dyskinesia, without mention of fluctuations Category: Medical (2) Abdominal pain: Code(s): R10.9 - Unspecified abdominal pain Category: Medical (3) Anxiety: Code(s): F41.9 - Anxiety disorder, unspecified Category: Medical (4) Hallucinations: Code(s): R44.3 - Hallucinations, unspecified Category: Medical (5) Compulsive behavior: Code(s): R46.89 - Other symptoms and signs involving appearance and behavior Category: Medical Plan Rytary 145mg cap from- 3 caps at 8am and 12pm, 2 caps at 4pm and 8pm, and 1 cap q 12am. In hopes this reduces compulsive behaviors. Continue Quetiapine 25mg qhs. Continue Nuplazid 34mg qd. For now, continue Lorazepam 1mg 5 x's per day. Consider trial of mood stabilizer and then begin reducing Lorazepam use. Will request psychiatry consult. Will initiate order for Home Care Services, as pt is homebound d/t pt requires assist of 1 to safely leave home d/t tremor, bradykinesia, compulsive behaviors. Pt does not currently drive. Home PT eval & tx for home safety eval, tremor. Home DISTRIBUTION SALES MANAGER to assist family w/ optimizing support services. F/u w/ GI as scheduled. Start ABT per ER- pt plans tos atrt after his upcoming H. Pylori tetsing. ? ? f/u in 3-6 months or sooner prn Orders: Referrals [facility] Referral G20.A1 - Parkinson's disease without dyskinesia, without mention of fluctuations, F41.9 - Anxiety disorder, unspecified, K59.03 - Drug induced constipation, R10.9 - Unspecified abdominal pain Psychiatry Referral G20.A1 - Parkinson's disease without dyskinesia, without mention of fluctuations, F41.9 - Anxiety disorder, unspecified, R44.3 - Hallucinations, unspecified, R46.89 - Other symptoms and signs involving appearance and behavior Medications: Changed From carbidopa-levodopa 36.25-145 mg ER 3 caps qam and then 2 caps QID, and 1 cap q 12am (total 12 caps per day). orally 30 days 360 caps 3RF To carbidopa-levodopa 36.25-145 mg ER (Rytary) 3 caps q 8am and 12pm, 2 caps q 4pm and 8pm, and 1 cap q 12am, may take 1 extra cap per day prn (max 12 caps per day). orally 360 caps 3RF 30 days From quetiapine 25 mg PO DAILY@0000 To quetiapine 25 mg orally daily at 4pm; 90 tabs 1RF 90 days Scribe Plan - Not visible on output: Discussed importance of regular physical activity for management of PD s/s, such as walking, cycling, boxing. Discussed benefits of dopaminergic therapies, such as reduced tremor and improved motor symptoms. Discussed potential adverse effects of dopaminergic therapies, including but not limited to nause/GI upset, orthostatic lightheadedness, dyskineisas, sleepiness, hallucinations. Pt is advised to establish care with a aerial planting and cultivation manager due to slight increase risk of melanoma seen in patient's with Parkinson's disease. Coding Level of Care Code Est Pt Level 4 (37476) Diagnoses Parkinson's disease without dyskinesia G20.A1 Abdominal pain R10.9 Anxiety F41.9 Hallucinations R44.3 Compulsive behavior R46.89
[2023-12-03 15:43] VITALS: PULSE 68; O2SAT 99; BMI 18.7
== END 2023-12-03 16:45 | disposition home or self-care (01) ==
PROVIDERS: Visit Provider Nurse Practitioner Family
DX: G20.A1 Parkinson's disease without dyskinesia, without mention of fluctuations (principal); R10.9 Unspecified abdominal pain; F41.9 Anxiety disorder, unspecified; R44.3 Hallucinations, unspecified; R46.89 Other symptoms and signs involving appearance and behavior
CPT/HCPCS: 99214

== ENCOUNTER 2023-12-06 15:14 | Outpatient (REF) | payer MEDICARE, SELFPAY ==
[2023-12-09 08:56] LABS: H Pylori Breath Test Negative (Negative)
== END 2023-12-06 15:15 | disposition home or self-care (01) ==
LOC: HO.LNP 15:14
PROVIDERS: Visit Provider Nurse Practitioner Family
DX: K21.9 Gastro-esophageal reflux disease without esophagitis (principal)
CPT/HCPCS: 83013; 99211

== ENCOUNTER 2023-12-06 15:14 | Outpatient (AMB) | payer MEDICARE, SELFPAY ==
--- NOTE | 2023-12-06 15:26 | AM.OFFVISNUR ---
Intake Intake Visit Reasons: H Pylori Allergies aspirin [Aspirin] Allergy (Unknown, Verified 12/03/23 15:45) UNKNOWN Penicillins Allergy (Unknown, Verified 12/03/23 15:45) UNKNOWN Nursing Note Patient presents for collection of?H?Pylori?breath test. Patient has been fasting for 1 hour (nothing to eat, drink, no chewing gum or smoking) has not taken any antacid medication for at least 2 weeks and has no allergies to artificial sweeteners.?? Coding Level of Care Code Established Pt Est Pt Level 1 (72081) Patient Type Established Medical Decision Making Straight Forward Diagnoses Abdominal pain R10.9 Nausea R11.0 Assessment & Plan Assessment & Plan (1) Abdominal pain: Code(s): R10.9 - Unspecified abdominal pain Category: Medical (2) Nausea: Code(s): R11.0 - Nausea Category: Medical Plan Patient presents for collection of?H?Pylori?breath test. Patient has been fasting for 1 hour (nothing to eat, drink, no chewing gum or smoking) has not taken any antacid medication for at least 2 weeks and has no allergies to artificial sweeteners.???This test checks for an overgrowth of bacteria in your stomach. We all have bacteria but some may have more than others. It is treatable. if the test comes back negative there is nothing else to do. If the test result is positive we will treat you with 2 antibiotics and a medication to decrease the acid in your stomach (PPI) for 2 weeks. Two weeks after you have completed the treatment we will retest you to make sure the overgrowth has resolved. Patient Instructions: Process for specimen collection and reason for testing was explained to the patient. Specimen collection. Patient instructed to take a deep breath and then exhale into the blue bag, filling it up as much as possible. Patient instructed to drink a mixture of water and the artificial sweetener with a straw. A 15 minute wait period was observed. Patient instructed to take a deep breath and then exhale into the pink bag, filling it up as much as possible.??
== END 2023-12-06 15:27 | disposition home or self-care (01) ==
PROVIDERS: Visit Provider Nurse Practitioner Family
DX: R10.9 Unspecified abdominal pain (principal); R11.0 Nausea

== ENCOUNTER 2024-01-21 16:38 | Outpatient (AMB) | payer MEDICARE, SELFPAY ==
--- NOTE | 2024-01-21 16:40 | A.OFFPSYCH_ITS ---
Intake Intake Visit Reasons: consultation Intake Note: pt is here for evaluation with his nephew who is also his instrument tester caregiver. chart reviewed. Allergies aspirin [Aspirin] Allergy (Unknown, Verified 12/03/23 15:45) UNKNOWN Penicillins Allergy (Unknown, Verified 12/03/23 15:45) UNKNOWN Medication List - Last Reconciled 01/21/24 by Lori Gaming, ANTOINE bisacodyl 10 mg [place] DAILY PRN bisacodyl (Dulcolax (bisacodyl)) 10 mg (2 x 5 mg) PO BEDTIME bismuth subsalicylate 525 mg PO DAILY PRN calcium carbonate 500 mg PO BID PRN carbidopa-levodopa 36.25-145 mg ER (Rytary) 3 caps q 8am and 12pm, 2 caps q 4pm and 8pm, and 1 cap q 12am, may take 1 extra cap per day prn (max 12 caps per day). orally 30 days lorazepam 1 mg orally 5 x's per day; 1 mg orally 5 times a day; 30 days magnesium hydroxide (Milk of Magnesia) 5 mL PO DAILY@1200 pimavanserin (Nuplazid) 34 mg PO DAILY 30 days quetiapine 25 mg orally daily at 4pm; 90 days simethicone 125 mg PO BID-QID PRN HPI- Psychiatric Chief Complaint: consultation HPI Narrative: pt was referred by his neurologist Berenice Stokes LICENSED PRACTICAL VOCATIONAL NURSE for evaluation for psychiatric medication optimization to help with anxiety and compulsive behaviors in the context of Parkinson's disease. Pt has been on lorazepam 1mg five times a day for many years. Pt has tried some other medications in past including citalopram and zoloft. Pts nephew and electronic specialist reports the zoloft was ineffective but not sure of the dose and the citalopram seemed to cause more compulsions. Pt takes quetiapine 25 mg at bedtime. he has tried in daytime but says causes too much sedation. Pts nephew tells me that pt has been to the ED 7 times in the last 2 months due to obsessing about no bowel movements. He takes OTC laxatives. He is followed by gastroenterology. He has chronic stomach bloating. Pt gets very anxious with the bloating. Pt is at times paranoid and thinks that his ex- poisoned him. He states he wants 1or 2 women to come to his home and cook for him and watch tv with him. He gets increased energy at [facility] and tries to do many projects including spray painting outside at night, using chemical or tolls to repair,clean or fix things for hors at a time. pt also makes long lists of tasks or errands to run and demands his nephew takes him to do all of them despite its frequently unreasonable to try to accomplish all of them. pt has anxiety attacks. Past Psychiatric History: no hx of IPLOC. seen outpatient by psychiatry but pt and nephew unsure of where. Subjective Subjective Subjective Medication Compliance: Yes Side effects from medications: No Review of Systems Medical Review of Systems: unchanged Mental Status Exam Mental Status Exam Patient Appearance: Appropriate Patient Orientation: Person, Place, Time and Situation Level of Consciousness: Awake, Restless and Alert Patient Behavior: Appropriate, Cooperative, Hypersexual (flirtatious) and Distractible Behavior Comments: slow short step when walking, stooped, hand contractures, Mood Description: Suspicious and Anxious Affect Description: Constricted Patient Cognition Impaired: Yes Ability to Follow Directions: Fair Speech Pattern: Spontaneous Speech, Rambling, Cofabulation and Delayed Memory Description: Remote Impaired and Recent Impaired Delusions: Paranoid Ideation Thought Process: Distracted and Rumination Thought Content: positive for Preoccupation Judgement: Poor Assessment and Plan Assessment & Plan (1) Compulsive behavior: Status: Acute Code(s): R46.89 - Other symptoms and signs involving appearance and behavior (2) Anxiety: Status: Acute Code(s): F41.9 - Anxiety disorder, unspecified Plan 73 yo with anxiety and compulsion in context of Parkinson's Disease in high dose Ativan and continued anxiety and behavioral disturbance due to compulsions. start zoloft 12.5mg daily reduce ativan by 1/4 tablet (0.25mg) daily every 30 days if zoloft not tolerated can try nortriptyline or a mood stabilizer conversation with Berenice deleon to discuss dx , pt status and plan for ativan taper plan to see pt for 3 visits over 3 months and then pt return to Berenice Stokes Medications: New sertraline (Zoloft) 12.5 mg (1/2 x 25 mg) PO DAILY 15 tabs 1RF Counseling and coordination of Care Pt. Self Management counseling: Mod caffeine/ETOH intake, General coping skills and Problem solving Medication management counseling: Effectiveness, Side effects, Dosing range, Duration, Drug interaction and Adherence Details-Med Mgmt counseling: detailed instruction for ativan taper and rationale for same; Diagnosis and Prognosis Counseling: Accuracy of diagnosis, Prognosis over time, Impact of diagnosis on life functions, Impact of family relationship, Problematic behaviors secondary to diagnosis and Adequacy of current interventions Details: I spent 90 minutes reviewing the record, seeing the patient and documenting in the medical record. Counseling provided to the patient/caregiver as outlined below. Addressed patient/caregiver concerns regarding current medication regime including effective adherence. Addressed patient/caregiver concerns regarding diagnosis and prognosis including accuracy of diagnosis, prognosis over time, impact of diagnosis. Addressed patient/caregiver concerns regarding impact of recent stressors. 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
== END 2024-01-21 18:23 | disposition home or self-care (01) ==
LOC: HO.HOP 16:38
PROVIDERS: Visit Provider Clinical Nurse Specialist Psychiatric/Mental Health
DX: F41.9 Anxiety disorder, unspecified (principal)
CPT/HCPCS: 90792

== ENCOUNTER → 2024-01-21 16:38 | Outpatient (BNVA) | payer MEDICARE, SELFPAY | PROVIDERS: Visit Provider Clinical Nurse Specialist Psychiatric/Mental Health | DX: F41.9 Anxiety disorder, unspecified (principal) | CPT/HCPCS: 90792 ==

== ENCOUNTER 2024-02-06 14:07 | Outpatient (AMB) | payer MEDICARE, SELFPAY ==
--- NOTE | 2024-02-06 14:09 | MHC.OFFVIS ---
Vital Signs 02/06/24 14:15 Height 5 ft 10 in Weight 127 lb 4 oz BMI 18.3 BP 112/64 Blood Pressure Location Rt brachial Position Sitting Pulse 71 Pulse Source Pulse Oximeter Pulse Oximetry (%) 97 Oxygen Delivery Method Room Air Intake Visit Reasons: 3 mo f/u - Parkinson-LVM Intake Note: Patient presents for 3 months f/u. Needing a home health aid. Allergies aspirin [Aspirin] Allergy (Unknown, Verified 12/03/23 15:45) UNKNOWN Penicillins Allergy (Unknown, Verified 12/03/23 15:45) UNKNOWN Medication List - Last Reconciled 02/06/24 by Berenice Stokes, DANIELA bisacodyl 10 mg [place] DAILY PRN bisacodyl (Dulcolax (bisacodyl)) 10 mg (2 x 5 mg) PO BEDTIME bismuth subsalicylate 525 mg PO DAILY PRN calcium carbonate 500 mg PO BID PRN carbidopa-levodopa 36.25-145 mg ER (Rytary) 3 caps q 8am and 12pm, 2 caps q 4pm and 8pm, and 1 cap q 12am, may take 1 extra cap per day prn (max 12 caps per day). orally 30 days lorazepam 1 mg orally 5 x's per day; 1 mg orally 5 times a day; 30 days magnesium hydroxide (Milk of Magnesia) 5 mL PO DAILY@1200 pimavanserin (Nuplazid) 34 mg PO DAILY 30 days quetiapine 25 mg orally daily at 4pm; 90 days sertraline (Zoloft) 12.5 mg (1/2 x 25 mg) PO DAILY simethicone 125 mg PO BID-QID PRN HPI Comments Details: 73-yr-old male presents for f/u visit. Pt is accompanied by his nephew, Juanito. Pt did have psychiatry consult- was advised to start sertaline 12.5mg, however he took it for 3 days and stated that he felt worse so stopped it. He states while taking it, he started having hallucinations again- saw squirrels. He was advised to reduce Lorazepam by < 1mg per day- however pt is still taking 1 tab 5 x's per day. Pt's primary concern is his bowel regimen. He feels he should ahe a BM qd. He is using bisacodyl tabs and suppositoies. He is not eating much. Can only eat soft foods as his dentures do not fit well, were too tight. However pt has lost weight- and he has not retried them. He has upcoming GI f/u. Nephew is concerned that pt is not always thinking clearly. There is some circular thought patterns and pt changes his opinion often. Nephew is concerned that pt is impulsive- last week, pt was outside for extended hours in the heat doing yard work- and could not be convinced to come inside. Pt still tending to fix things around the house/yard that do not require fixing. Nephew is concerned that many of these activies are unsafe. Pt still wants to drive, especially if nephew does not go to the store when pt wants him to. Pt did recently buy a racing car- w/ a friend. He would like to race it. He asks if I could ride with him to assess his driving. Nephew reports caregiver stress. They have talked w/ [facility]. Pt is not interested in hiring additional caregivers. [facility] Medical History (Updated 01/24/24 @ 14:37 by Lori Gaming APRN) Parkinson's disease Surgical History No pertinent past surgical history Family History Mother Cancer Social History Alcohol intake: never Patient Tobacco Use Status: Never used Tobacco Review of Systems Const All systems reviewed & are unremarkable except as noted in HPI and below Physical Exam Vital Signs: Last Vital Signs Pulse 71 02/06/24 14:15 BP 112/64 02/06/24 14:15 Pulse Ox 97 02/06/24 14:15 Oxygen Delivery Method Room Air 02/06/24 14:15 BMI result Body Mass Index 18.3 Const General: cooperative and no acute distress Resp Effort & Inspection: normal respiratory effort and able to speak in complete sentences Neuro Other: General: A&O x's 3 Expression: Decreased Voice: soft Tremor: BUE rest tremor- mild Gait: Stands ok, short steps, steady gait today Psych Appearance: grossly normal Attitude: cooperative Thought process: Perseverating thought process present Insight: Poor insight present (Psych) Judgement: Poor judgement present (Psych) Assessment & Plan Assessment & Plan (1) Parkinson's disease without dyskinesia: Comment: Ryann positive (2014) Code(s): G20.A1 - Parkinson's disease without dyskinesia, without mention of fluctuations Category: Medical Qualifiers: Fluctuating manifestations: without fluctuating manifestations Qualified Code(s): G20.A1 - Parkinson's disease without dyskinesia, without mention of fluctuations (2) Compulsive behavior: Code(s): R46.89 - Other symptoms and signs involving appearance and behavior Category: Medical (3) Constipation: Code(s): K59.00 - Constipation, unspecified Category: Medical Qualifiers: Constipation type: drug induced constipation Qualified Code(s): K59.03 - Drug induced constipation (4) Anxiety: Code(s): F41.9 - Anxiety disorder, unspecified Category: Medical Plan Continue Rytary 145mg cap from- 3 caps at 8am and 12pm, 2 caps at 4pm and 8pm, and 1 cap q 12am. Continue Quetiapine 25mg qhs. Continue Nuplazid 34mg qd. For now, continue Lorazepam 1mg 5 x's per day. Pt stopped sertraline- he did not recall taking this w/o s/e for many yrs before. F/u w/ psychiatry as scheduled. Pt needs additional career counselor support. Advised pt and nephew to meet w/ an eldercare steel handler. Pt should NOT drive until he has a safety driving assessment- can be done at a local driving school. will f/u on previous request for neuro-psych eval. Trial adding Metamucil qd. Increase po intake. Try wearing his dentures- if they do not fit, pt should see dentist to be have his dentures refitted or replaced. ?F/u w/ GI as scheduled. ? ? f/u in 3-6 months or sooner prn Medications: New psyllium husk (Metamucil) 0.4 grams PO BEDTIME 30 days 30 caps 1RF Coding Level of Care Code Est Pt Level 4 (21874) Complex EM visit Add On G2211 Diagnoses Parkinson's disease without dyskinesia or fluctuating manifestations G20.A1 Fluctuating manifestations: without fluctuating manifestations Compulsive behavior R46.89 Drug-induced constipation K59.03 Constipation type: drug induced constipation Anxiety F41.9
[2024-02-06 14:15] VITALS: BP 112/64; PULSE 71; O2SAT 97; BMI 18.3
== END 2024-02-06 15:10 | disposition home or self-care (01) ==
PROVIDERS: Visit Provider Nurse Practitioner Family
DX: G20.A1 Parkinson's disease without dyskinesia, without mention of fluctuations (principal); R46.89 Other symptoms and signs involving appearance and behavior; K59.03 Drug induced constipation; F41.9 Anxiety disorder, unspecified
CPT/HCPCS: 99214; G2211

== ENCOUNTER → 2024-02-06 14:07 | Outpatient (BNVA) | payer MEDICARE, SELFPAY | PROVIDERS: Visit Provider Nurse Practitioner Family | DX: G20.A1 Parkinson's disease without dyskinesia, without mention of fluctuations (principal); K59.03 Drug induced constipation; F41.9 Anxiety disorder, unspecified | CPT/HCPCS: 99212 ==

== ENCOUNTER 2024-02-19 16:20 | Outpatient (AMB) | payer MEDICARE, SELFPAY ==
[2024-02-19 16:22] VITALS: BP 91/55; PULSE 68; O2SAT 97; BMI 18.3
--- NOTE | 2024-02-19 16:22 | A.OFFVIS_ITS ---
Vital Signs 02/19/24 16:22 Height 5 ft 10 in Weight 127 lb 13.89 oz BMI 18.3 BP 91/55 L Blood Pressure Location Lt brachial Position Sitting Pulse 68 Pulse Oximetry (%) 97 Oxygen Delivery Method Room Air Intake Visit Reasons: FUV per Gladys Intake Note: Patient in office today in follow up of constipation. CC: Patient c/o trouble breathing, nausea, and constipation. He states that it's hard to breath . 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 Patient was encouraged to increase fluid intake. Patient can take lactose-free protein shakes. Avoid dietary triggers. Low FODMAP diet discussed with patient. Patient does have a list of food to avoid home. Postprandial abdominal bloating script for simethicone sent. I will see patient in 1 month, sooner on as needed basis. Patient is agreeable to this plan and verbalizes understanding of instructions. He was given the opportunity to ask questions and all questions answered. ? Thank you for allowing me to participate in his care Medications New simethicone 125 mg PO BID-QID PRN 120 caps 3RF abdominal distention bisacodyl (Dulcolax (bisacodyl)) 10 mg (2 x 5 mg) PO BEDTIME 180 tabs 4RF Discontinued pantoprazole (Protonix) Discontinued Reason: Patient Completed Course 40 mg PO DAILY 20 tabs 0RF TODAY'S VISIT: Patient is here today for follow-up. Patient is accompanied by his nephew. Patient reports that he has been doing little better, simethicone helps with bloating. He was trying to use Dulcolax tablets, however he was getting cramping and he would have multiple bowel movements after. He reports that Dulcolax suppository works better for him. He states that he takes it if he does not have a bowel movement for couple days. Patient denies any melena, hematochezia, unintentional weight loss or ribbon like stools. Patient reports that he feels like his breathing has improved, he feels like it is associated with him getting anxious. Patient denies any dyspepsia, dysphagia or odynophagia. Currently is taking pantoprazole in the morning and states that his symptoms of acid reflux are suppressed. [facility] Medical History Parkinson's disease Surgical History No pertinent past surgical history Family History Mother Cancer Social History Alcohol intake: never Patient Tobacco Use Status: Never used Tobacco Review of Systems Const Denies weight gain and Denies weight loss ENT Reports no additional complaints, Denies dysphagia and Denies odynophagia Card Reports no additional complaints Resp Reports no additional complaints GI Reports abdominal pain (upper abdomen), Denies belching, Denies melena, Reports bloating, Denies change in bowel habits, Reports constipation, Denies dysphagia, Denies excessive flatus, Denies dyspepsia, Denies heartburn, Denies diarrhea, Denies loose stools, Denies nausea, Denies odynophagia and Denies vomiting Reports no additional complaints Musc Reports no additional complaints Neuro Reports no additional complaints Psych Reports no additional complaints Endo Reports no additional complaints Physical Exam Vital Signs: Last Vital Signs Pulse 68 02/19/24 16:22 BP 91/55 L 02/19/24 16:22 Pulse Ox 97 02/19/24 16:22 Oxygen Delivery Method Room Air 02/19/24 16:22 BMI result Body Mass Index 18.3 Const Other: Occasional tremors General: healthy appearing and no acute distress Nutritional Appearance: well nourished Orientation/consciousness: patient oriented x3 Resp Effort & Inspection: normal respiratory effort, able to speak in complete sentences, no tracheal deviation and symmetric chest movement Auscultation: clear to auscultation bilaterally Cardio Rate: regular rate GI Inspection: Yes normal to inspection and No distended Palpation (GI): Soft to palpation, not firm, nontender and No hepatosplenomegaly present Auscultation: normal bowel sounds General: Yes no CVA tenderness Back/Spine/Pelvis Back: no CVA tenderness Skin General skin exam: elasticity normal, turgor normal and dry skin Neuro General: patient oriented x3 Psych Appearance: grossly normal Mental Status: mental status grossly normal Assessment & Plan Assessment & Plan (1) Constipation: Code(s): K59.00 - Constipation, unspecified Category: Medical Qualifiers: Constipation type: drug induced constipation Qualified Code(s): K59.03 - Drug induced constipation (2) Postprandial epigastric pain: Code(s): R10.13 - Epigastric pain (3) Abdominal bloating: Code(s): R14.0 - Abdominal distension (gaseous) Plan Increase fluid intake and activity to promote better bowel motility. Patient may take Dulcolax suppository, okay to take it every other day. Dulcolax tablets on as needed basis. Discussed with patient trying to increase calorie intake. Encouraged him to try protein shakes. Patient will return in 6 weeks so we can discuss going for colonoscopy. Patient is agreeable to this plan and verbalizes understanding of instructions. He was given the opportunity to ask questions and all questions answered. Thank you for allowing me to participate in his care Medications: Refilled simethicone 125 mg PO BID-QID PRN 120 caps 3RF abdominal distention Coding Level of Care Code Est Pt Level 3 (12094) Diagnoses Drug-induced constipation K59.03 Constipation type: drug induced constipation Postprandial epigastric pain R10.13 Abdominal bloating R14.0 Time Spent (min) 25 Comment 15 minutes spent with patient and additional 10 minutes spent reviewing his records
== END 2024-02-20 14:06 | disposition home or self-care (01) ==
PROVIDERS: Visit Provider Nurse Practitioner Family
DX: K59.03 Drug induced constipation (principal); R10.13 Epigastric pain; R14.0 Abdominal distension (gaseous)
CPT/HCPCS: 99213

== ENCOUNTER → 2024-02-19 16:20 | Outpatient (BNVA) | payer MEDICARE, SELFPAY | PROVIDERS: Visit Provider Nurse Practitioner Family | DX: K59.03 Drug induced constipation (principal); R10.13 Epigastric pain; R14.0 Abdominal distension (gaseous) | CPT/HCPCS: 99212 ==

== ENCOUNTER 2024-03-31 16:40 | Outpatient (AMB) | payer MEDICARE, SELFPAY ==
--- NOTE | 2024-03-31 16:40 | A.OFFVIS_ITS ---
Vital Signs 03/31/24 16:41 Height 5 ft 10 in Weight 128 lb 4.944 oz BMI 18.4 BP 116/56 L Blood Pressure Location Rt brachial Position Sitting Pulse 70 Pulse Source Pulse Oximeter Pulse Oximetry (%) 98 Oxygen Delivery Method Room Air Intake Visit Reasons: Follow up 6 weeks Intake Note: Jameel presents in office today for a scheduled 6 week FUV. CC; Pt reports that they are feeling terrible . Pt reports that they are still having difficulty with breathing. Pt reports that they are still having difficulties with chronic GI sx as well. Pt is not able to go into details with MA at the time of the question. Pt also reports that they are having moderate to severe constipation and has been having to have the suppositories repeatedly. Pt also reports possibly having difficulties at home with his nephew not being supportive. Rn Mental Health Required: No Allergies aspirin [Aspirin] Allergy (Unknown, Verified 03/31/24 16:40) UNKNOWN Penicillins Allergy (Unknown, Verified 03/31/24 16:40) UNKNOWN HPI HPI Follow up 6 weeks: Details: LAST VISIT Constipation Postprandial epigastric pain Abdominal bloating Plan Increase fluid intake and activity to promote better bowel motility. Patient may take Dulcolax suppository, okay to take it every other day. Dulcolax tablets on as needed basis. Discussed with patient trying to increase calorie intake. Encouraged him to try protein shakes. Patient will return in 6 weeks so we can discuss going for colonoscopy. Patient is agreeable to this plan and verbalizes understanding of instructions. He was given the opportunity to ask questions and all questions answered. ? Thank you for allowing me to participate in his care Medications Refilled simethicone 125 mg PO BID-QID PRN 120 caps 3RF abdominal distention TODAY'S VISIT: Patient is here today for follow-up. Patient is here today by himself. Patient states that he did not want to come with his nephew as his nephew is not very supportive he feels. Patient states that he continues to be constipated, however he takes Mayte-Cressey because his stomach is painful. He is afraid to eat anything. Last visit we discussed about trying Dulcolax to help him move his bowels and drink more fluids. Patient states that he rather use Dulcolax suppository if he has to have a bowel movement. Patient was in the ER back in November at [facility] CT scan was performed patient had large amount of stool throughout the colon. Patient denies any nausea or vomiting. So far patient has not followed on any recommendation that was made for him. Patient complains of short of breath when he is anxious. Currently patient is able to talk full sentences without feeling breathless . Patient denies any melena, hematochezia. Patient knows he is underweight, however he is afraid to eat so he avoids eating as much due to abdominal and epigastric pain. [facility] Medical History Parkinson's disease Surgical History No pertinent past surgical history Family History Mother Cancer Social History Alcohol intake: never Patient Tobacco Use Status: Never used Tobacco Review of Systems Const Denies weight gain and Denies weight loss ENT Reports no additional complaints, Denies dysphagia and Denies odynophagia Card Reports no additional complaints Resp Reports no additional complaints GI Reports abdominal pain (upper abdomen), Denies belching, Denies melena, Reports bloating, Denies change in bowel habits, Reports constipation, Denies dysphagia, Denies excessive flatus, Denies dyspepsia, Denies heartburn, Denies diarrhea, Denies loose stools, Denies nausea, Denies odynophagia and Denies vomiting Reports no additional complaints Musc Reports no additional complaints Neuro Reports no additional complaints Psych Reports no additional complaints Endo Reports no additional complaints Physical Exam Vital Signs: Last Vital Signs Pulse 70 03/31/24 16:41 BP 116/56 L 03/31/24 16:41 Pulse Ox 98 03/31/24 16:41 Oxygen Delivery Method Room Air 03/31/24 16:41 BMI result Body Mass Index 18.4 Const Other: Occasional tremors General: no acute distress Nutritional Appearance: underweight Orientation/consciousness: patient oriented x3 Resp Effort & Inspection: normal respiratory effort, able to speak in complete sentences, no tracheal deviation and symmetric chest movement Auscultation: clear to auscultation bilaterally Cardio Rate: regular rate GI Inspection: Yes normal to inspection and No distended Palpation (GI): Soft to palpation, not firm, nontender and No hepatosplenomegaly present Auscultation: normal bowel sounds General: Yes no CVA tenderness Back/Spine/Pelvis Back: no CVA tenderness Skin General skin exam: elasticity normal, turgor normal and dry skin Neuro General: patient oriented x3 Psych Appearance: grossly normal Mental Status: mental status grossly normal Assessment & Plan Assessment & Plan (1) Constipation: Code(s): K59.00 - Constipation, unspecified Category: Medical Qualifiers: Constipation type: drug induced constipation Qualified Code(s): K59.03 - Drug induced constipation (2) Postprandial epigastric pain: Code(s): R10.13 - Epigastric pain (3) Abdominal bloating: Code(s): R14.0 - Abdominal distension (gaseous) Plan Discussed with patient the importance of moving his bowels and eating more. Pablo hernandes was encouraged to eat more often and smaller amounts. Patient was encouraged to start taking omeprazole in the morning. Encouraged him to take Dulcolax tablet 1-2 daily or every other day to help him what his bowel regimen. Message sent to surgical schedulers to book colonoscopy and upper endoscopy for patient. Patient will return in 6 weeks to discuss going for the procedure. Please make sure patient comes with someone else who can help him with prep. Patient is unable to follow directions. Printout for had about plan given to patient. Patient is agreeable to current plan of care and verbalizes understanding of instructions. He was given the opportunity to ask questions and all questions answered. Thank you for allowing me to participate in his care Medications: Refilled bisacodyl (Dulcolax (bisacodyl)) 10 mg (2 x 5 mg) PO BEDTIME 180 tabs 4RF Patient Instructions: Start taking omeprazole in the morning when you wake up this will help you with your abdominal pain.? Take Dulcolax 1-2 tablets every evening to help you move your bowels better. Coding Level of Care Code Est Pt Level 3 (88537) Diagnoses Drug-induced constipation K59.03 Constipation type: drug induced constipation Postprandial epigastric pain R10.13 Abdominal bloating R14.0 Time Spent (min) 30 Comment 20 minutes spent with patient and additional 10 minutes spent reviewing his records
[2024-03-31 16:41] VITALS: BP 116/56; PULSE 70; O2SAT 98; BMI 18.4
== END 2024-03-31 17:00 ==
LOC: HO.HGI 16:40
PROVIDERS: Visit Provider Nurse Practitioner Family
DX: K59.03 Drug induced constipation (principal); R10.13 Epigastric pain; R14.0 Abdominal distension (gaseous)
CPT/HCPCS: 99213

== ENCOUNTER → 2024-03-31 16:40 | Outpatient (BNVA) | payer MEDICARE, SELFPAY | PROVIDERS: Visit Provider Nurse Practitioner Family | DX: K59.03 Drug induced constipation (principal); R10.13 Epigastric pain; R14.0 Abdominal distension (gaseous) | CPT/HCPCS: 99212 ==

== ENCOUNTER 2024-07-29 11:49 | Day surgery (SDC) | payer MEDICARE, SELFPAY ==
[2024-07-25 14:45] VITALS: BMI 18.4
--- NOTE | 2024-07-28 10:15 | HO.ANESPROP2 ---
Documented by User: Tiny Samano NP 07/28/24 10:15 HPI - Anesthesia Eval Consult details Narrative: 73yo M for Upper Endoscopy and Colonoscopy [facility] Active Problems Active Problems: All Active Problems Major depressive disorder (Acute) Compulsive behavior (Acute) Abdominal pain (Acute) Parkinson's disease without dyskinesia (Acute) Nausea (Acute) Hallucinations (Acute) Constipation (Acute) Anxiety (Acute) Past Medical History Medical History Parkinson's disease Family History Family History Mother Cancer Surgical History Surgical History No pertinent past surgical history Social History Social History Alcohol intake: never Patient Tobacco Use Status: Never used Tobacco Meds Allergies Allergy/AdvReac Type Severity Reaction Status Date / Time aspirin [Aspirin] Allergy Unknown UNKNOWN Verified 03/31/24 16:40 Penicillins Allergy Unknown UNKNOWN Verified 03/31/24 16:40 Home Medications ?Medication ?Instructions ?Recorded ?Confirmed ?Last Taken ?Type magnesium hydroxide 400 mg/5 mL 5 ml PO DAILY@1200 02/12/23 02/06/24 Unknown History oral suspension (Milk of Magnesia) calcium carbonate 500 mg PO BID PRN Acid Reflux 06/26/23 02/06/24 Unknown History Exam Height,Weight and Vital Signs: Height 5 ft 10 in Weight 58.06 kg Assessment and Plan Assessment Anesthesia Assessment: Chart Reviewed Documented by User: Liliane Rasmussen MD 07/29/24 13:15 PMFSH Active Problems Active Problems: All Active Problems Major depressive disorder (Acute) Compulsive behavior (Acute) Abdominal pain (Acute) Parkinson's disease without dyskinesia (Acute) Nausea (Acute) Hallucinations (Acute) Constipation (Acute) Anxiety (Acute) Difficulty swallowing saliva Past Medical History Medical History Parkinson's disease Family History Family History Mother Cancer Family history of problems with anesthesia: No Surgical History Surgical History No pertinent past surgical history History of Problems with Anesthesia: No Social History Social History Alcohol intake: never Patient Tobacco Use Status: Never used Tobacco Meds Allergies Allergy/AdvReac Type Severity Reaction Status Date / Time aspirin [Aspirin] Allergy Unknown UNKNOWN Verified 03/31/24 16:40 Penicillins Allergy Unknown UNKNOWN Verified 03/31/24 16:40 Home Medications ?Medication ?Instructions ?Recorded ?Confirmed ?Last Taken ?Type magnesium hydroxide 400 mg/5 mL 5 ml PO DAILY@1200 02/12/23 02/06/24 Unknown History oral suspension (Milk of Magnesia) calcium carbonate 500 mg PO BID PRN Acid Reflux 06/26/23 02/06/24 Unknown History Exam Height,Weight and Vital Signs: Height 5 ft 10 in Weight 58.06 kg Vital Signs Temp Pulse Resp BP Pulse Ox O2 Del Method 07/29/24 12:51 97.7 F 68 16 112/66 97 Room Air Airway Mallampati Class: II TM Dist: >3cm Neck ROM: Full Loose/Missing/Broken Teeth: Yes (Dentures) Heart: RRR Lungs: CTAB Assessment and Plan Assessment Anesthesia Assessment: Anesthesia Plan Discussed and Chart Reviewed Final Anesthetic Review Family History of Problems with Anesthesia: No History of Problems with Anesthesia: No NPO: Yes ASA Class: III Final Preanesthetic Review: No Changes in Pt Med Stat, Meds/Allgs Chart Reviewed, Consent Obtained/Reviewed and Anes Risks/Benef Reviewed Patient Risk: Intermediate Procedure Risk: Low Assessment/Block/Sedation in SS: Assess/Block/Sedation-SS Anesthetic Plan Anesthetic Plan: TIVA Disposition: Standard PACU
--- OUTSIDE RECORDS SUMMARY | 2024-07-29 11:53 | XMS_ITS | Continuity of Care Document ---
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 [address] [place] [address], [id number], . tel:[phone] Referring Provider: Merle Bingham, [address] [place], [place], [facility]. tel:[phone] Family History Family Member Type Diagnosis Age At Onset No Information Payers Payer name Insurance type Covered democrat ID Authoriza tihaider(s) Loretta [facility] [id number] Social History Type Description Quantity Date Captured Comments Sex Male Smoking Status No Information Chief Complaint And Reason For Visit No Information Reason For Referral Reason For Referral No Information History Of Present Illness Encounter Date Complaint History Of Prese nt Illness No Information Functional Status Date Functional Assessmen t No Information Instructions Date Instruction Additional Infor mation No Information Assessments Type Assessment Date No Information Patient Care Teams Name Effective Dates (start - stop) Status Members No Information
--- NOTE | 2024-07-29 12:36 | MHC.SHP ---
Pre-Procedural Eval Section A - 24 Hr Update-Section A only Date of Service: 07/29/24 Section B - Complete if H&P > 30 days Chief Complaint: Abdominal distension (gaseous) Relevant Family History (Specify if Yes): No Relevant Social History: None Present Medications: see Short Stay Collaborative assessment Medical History: Significant History (parkinsons, depression ) History of Previous Operations: No relevant previous surgery Allergies: Allergies Allergy/AdvReac Type Severity Reaction Status Date / Time aspirin [Aspirin] Allergy Unknown UNKNOWN Verified 03/31/24 16:40 Penicillins Allergy Unknown UNKNOWN Verified 03/31/24 16:40 Review of Systems Sugical H&P ROS: Negative: Constitution, Cardiovascular, Respiratory, Neurological, Psychiatric, Hem-Onc, Allergic/Immunologic, Gastrointestinal, Genitourinary, Musculoskeletal, Integumentary, Endocrine and Eyes/Ears/Nose/Throat Exam Surgical H&P Exam: Normal: HEENT, Normal: Heart, Normal: Lungs, Normal: Extremities, Normal: Abdomen and Normal: Skin and Significant Findings: Neurological (parkinsonian facies) Plan Diagnosis/Plan: Unchanged I have reviewed the history and physical and performed a pertinent physical examination on my patient. No changes have occurred unless specified. Time Spent With Patient Time: Total time managing care of this patient today ____ minutes.
[2024-07-29 12:51] VITALS: BP 112/66; PULSE 68; RESP 16; TEMP 36.5; O2SAT 97; BMI 18.4
[2024-07-29] MEDS: Lactated Ringers 1,000 ML 100 ML IVCONT (13:11)
--- NOTE | 2024-07-29 14:30 | P.OPN-COLO_ITS ---
Colonoscopy Operative Note Operative Note Date of Service: 07/29/24 Narrative: Operative Information Procedure Description: EGD, Colonoscopy Indication: epigastric pain, constipation Anesthesia: MAC FLEXIBLE TRANSORAL UPPER GASTROINTESTINAL ENDOSCOPY AND COLONOSCOPY PROCEDURE NOTE UPPER ENDOSCOPY Consent: Indications for the procedure and potential complications of bleeding, perforation, reaction to medications and missed diagnosis were discussed with the patient and informed consent was obtained. Instrument: Olympus GIF H 190 J mid size upper endoscope Monitoring: Vital signs and clinical assessment, continuous EKG monitoring, Pulse oximetry, Carbon Dioxide monitoring and blood pressure monitoring were done throughout the procedure. Procedure: The patient was placed in the left lateral decubitis position and pre-procedure medications were administered and a bite block was placed. The endoscope was inserted into the mouth and advanced under direct vision to the third part of duodenum. A careful inspection was made as the upper endoscope was withdrawn including a retroflexed examination of the proximal stomach; Findings and interventions are described below. Findings: Larynx:normal Esophagus: GE junction at 38 cm, diaphragm hiatus at 40 cm, consistent with 2 cm hiatal hernia, one tongue of possible barretts esophagus, bx taken Stomach: atrophic mucosa. Biopsies were obtained. Grade 2 flap valve on retroflexed examination of the cardia. small polyp 5-6 mm on retroflexion, bx taken Duodenum: Normal bulb and descending duodenum, Intervention: Biopsies as noted above, COLONOSCOPY Instrument: Olympus variable stiffness pediatric scope 190L Colonoscopy Monitoring: Vital signs and clinical assessment, continuous EKG monitoring, Pulse oximetry, Carbon Dioxide monitoring and blood pressure monitoring were done throughout the procedure. Colon withdrawal time was 8 minutes. Procedure: The patient was placed in the left lateral decubitis position and pre-procedure medications were administered. After a digital rectal examination of the ano-rectum, the video colonoscope was inserted into the rectum and advanced through the colon to the cecum/TI. The colonoscope was slowly withdrawn in a retrograde panoramic fashion and the colon mucosa was carefully examined including a retroflexed view of the rectum. Findings and interventions are described below. Procedure Difficulty:moderate Findings: Terminal Ileum-not intubated Cecum:normal Ascending Colon: normal Right sided retroflexion- normal Transverse Colon -normal Descending Colon:normal Sigmoid Colon: normal Rectum: Retroflexion with small internal hemorrhoids, grade I Anorectum - normal Colon preparation: [place] Bowel Preparation Scale Right colon; 1-2 Transverse colon: 2 Left colon; 1-2 (0 = Unprepared colon segment with mucosa not seen due to solid stool that cannot be cleared. 1 = Portion of mucosa of the colon segment seen, but other areas of the colon segment not well seen due to staining, residual stool and/or opaque liquid. 2 = Minor amount of residual staining, small fragments of stool and/or opaque liquid, but mucosa of colon segment seen well. 3 = Entire mucosa of colon segment seen well with no residual staining, small fragments of stool or opaque liquid) Impression and Post Procedure Diagnosis: Endoscopy Findings: atrophic gastritis hiatal hernia Colonoscopy Findings: redundant colon internal hemorrhoids Plan: Await Pathology results Repeat Colonoscopy in 3-4 years if health allows or earlier if clinically indicated High fiber diet leaflet avoid straining at stool, epsom salts and sitz bath, anusol supps or cream Above findings were reviewed with the patient and relevant handouts were provided if indicated.
[2024-07-29 14:40] VITALS: BP 112/64; PULSE 62; RESP 16; TEMP 36.3; O2SAT 100
[2024-07-29 14:55] VITALS: BP 122/64; PULSE 60; RESP 16; TEMP 36.3; O2SAT 100
== END 2024-07-29 15:33 | disposition home or self-care (01) ==
PROVIDERS: Visit Provider Internal Medicine Gastroenterology
PROC: (CPT 43239; principal; 2024-07-29 12:20)
DX: K64.0 First degree hemorrhoids (principal); K59.03 Drug induced constipation; K31.7 Polyp of stomach and duodenum; K29.40 Chronic atrophic gastritis without bleeding; K44.9 Diaphragmatic hernia without obstruction or gangrene; R14.0 Abdominal distension (gaseous); G20.A1 Parkinson's disease without dyskinesia, without mention of fluctuations; F41.9 Anxiety disorder, unspecified
CPT/HCPCS: 43239; 45378; 88305; 88313; 88342; J2003; J2704

== ENCOUNTER → 2024-07-29 11:49 | Outpatient (BNV) | payer MEDICARE, SELFPAY | PROVIDERS: Visit Provider Internal Medicine Gastroenterology | DX: K59.00 Constipation, unspecified (principal); K64.0 First degree hemorrhoids; Q43.8 Other specified congenital malformations of intestine; K31.7 Polyp of stomach and duodenum; K29.40 Chronic atrophic gastritis without bleeding | CPT/HCPCS: 43239; 45378 ==

== ENCOUNTER 2024-09-03 14:01 | Outpatient (AMB) | payer MEDICARE, SELFPAY ==
--- NOTE | 2024-09-03 14:01 | A.OFFVIS_ITS ---
Vital Signs 09/03/24 14:02 Height 5 ft 10 in Intake Visit Reasons: 6 month f/u, Allergies aspirin [Aspirin] Allergy (Unknown, Verified 09/03/24 14:02) UNKNOWN Penicillins Allergy (Unknown, Verified 09/03/24 14:02) UNKNOWN Medication List - Last Reconciled 09/03/24 by DANIELA Mauricio brexpiprazole (Rexulti) 0.5 mg PO DAILY 30 days calcium carbonate 500 mg PO BID PRN carbidopa-levodopa 36.25-145 mg ER (Rytary) 3 caps q 8am and 12pm, 2 caps q 4pm and 8pm, and 1 cap q 12am, may take 1 extra cap per day prn (max 12 caps per day). orally 30 days lorazepam 1 mg orally 5 x's per day; 1 mg orally 5 times a day; 30 days magnesium hydroxide (Milk of Magnesia) 5 mL PO DAILY@1200 pimavanserin (Nuplazid) 34 mg PO DAILY 30 days psyllium husk (Metamucil) 0.4 grams PO BEDTIME 30 days sertraline 12.5 mg (1/2 x 25 mg) PO DAILY simethicone 125 mg PO BID-QID PRN HPI Comments Details: 73-yr-old male presents for f/u telephone visit. Pt is accompanied by his nephew, Juanito. Visit is conducted via telephone, as patient was unable to utilize [employer] technology today. Pt has been noticing bad cramps in his toes and thighs occurring when he is sitting, usually between 8:30-9pm. He puts aspercream, which does help some. He also gets up and moves around, which helps keep his mind off the cramps. He continues to have stomach discomfort. He had colonoscopy which did show atrophic gastritis and esophagitis. He has not yet had follow-up with GI. He is continuing to use Dulcolax and Metamucil, and possibly magnesium citrate at times. He is no longer taking a PPI or H2 antagonist Tx. He states he is taking his Rytary 145mg cap as- 3 caps at 8am, 12pm, 4pm, 8pm, and 1 cap q 12am. He is compliant with his lorazepam 1 mg 5 times a day, Nuplazid 34 mg daily. He stopped the sertraline, states he did not tolerated. He has stopped the quetiapine, as he felt this was causing increased agitation. Since the last visit, pt's nephew has reported episodes of pt being agitation and aggressive with the nephew. Pt felt that the quetiapine was causing increased agitation. Pt has been unable to have f/u appt w/ psychiatry. Thus, we started pt on Rexulti, which pt states does help him to feel calmer and less likely to argue with his nephew. After pt completed 1 month of Rexulti, he had a lapse of a few days of taking Rexulti d/t an insurance issue. Patient was advised to try quetiapine 12.5 mg, however this was felt to increase his agitation and so stopped after 1 dose. However, in the next couple of days, while patient was off quetiapine and Rexulti, per nephew- pt had an increase in physical agitation and the police had to be called as a nephew feared for his safety. [facility] is now involved with pt/nephew. Since, patient has resumed Rexulti and patient/nephew stated that within the day of resuming it, his mood and agitation were much improved. Overall he is tolerating the Rexulti well, however since starting it, he has had some nocturnal episodes of hallucinations, mostly at night when the blinds are half closed. His tremor is overall stable, though some days it may be worse. Pt's nephew reports pt has been having more difficulty managing his finances. Pt states he was told that he needs to schedule a safe driving evaluation. Pt is actively trying to sell his house so that he can move to [place]- he is also looking for property in [place]. [facility] Medical History Encounter for surgical aftercare following surgery on the teeth or oral cavity Parkinson's disease Surgical History History of surgery of head Previous back surgery No pertinent past surgical history Family History Mother Cancer Social History Alcohol intake: never Patient Tobacco Use Status: Never used Tobacco Physical Exam Const General: cooperative and no acute distress Resp Effort & Inspection: normal respiratory effort and able to speak in complete s entences Neuro Other: Patient is alert and oriented x3. However, today he had more STM lapses. Pleasant affect with perseveration Soft voice Cognition (Neuro): normal cognition Psych Attitude: cooperative Telehealth Telehealth Telehealth Platform: Telephone Location of provider rendering services: practice address Location of patient: address on file Patient Identification confirmed using: Name, : Yes Telehealth method: voice only Patient verbally consented to treatment: Yes Patient verbally consented to billing insurance company: Yes Patient informed of any privacy concerns related to visit: Yes Minutes spent on Phone/Video with Pt.: 25 Assessment & Plan Assessment & Plan (1) Parkinson's disease without dyskinesia: Comment: Ryann positive (2014) Code(s): G20.A1 - Parkinson's disease without dyskinesia, without mention of fluctuations Category: Medical Qualifiers: Fluctuating manifestations: without fluctuating manifestations Qualified Code(s): G20.A1 - Parkinson's disease without dyskinesia, without mention of fluctuations (2) Anxiety: Code(s): F41.9 - Anxiety disorder, unspecified Category: Medical (3) Compulsive behavior: Code(s): R46.89 - Other symptoms and signs involving appearance and behavior Category: Medical (4) Constipation: Code(s): K59.00 - Constipation, unspecified Category: Medical Qualifiers: Constipation type: drug induced constipation Qualified Code(s): K59.03 - Drug induced constipation Plan Continue Rytary 145mg cap- however patient states he is currently taking 13 caps per day, even though current order is for 12 caps per day. I would not increase Rytary 145 mg cap above 12 caps per day at this time thus take Rytary 3 caps at 8am, 12pm, and 4pm; and 2 caps at 8pm; and 1 cap q 12am. We have discontinued Quetiapine 25mg qhs- however it is not clear if quetiapine actually causes agitation, or was just not adequately controlling it. Continue Rexulti 0.5 mg q.a.m. Continue Nuplazid 34mg qd. For now, continue Lorazepam 1mg 5 x's per day. We have already requested patient to follow-up with psychiatry We will initiate a new order for comprehensive neuropsych evaluation to assess patient's cognitive strengths/deficits. We will check fasting labs for common etiologies of STM difficulties Pt requires assistance with IADLs- such as driving. Pt is again advised that he should NOT drive until he has a safety driving assessment. Start magnesium oxide 400 mg q.h.s.-in hopes this reduces BLE cramps Resume Protonix 40 mg p.o. daily in a.m.- in hopes this reduces GI upset It is important to eat and drink fluids regularly. Try wearing his dentures- if they do not fit, pt should see dentist to be have his dentures refitted or replaced. ?F/u w/ GI as scheduled. ? ? f/u in 3-6 months or sooner prn Orders: Orders Complete Blood Count Auto Diff Today D64.9 - Anemia, unspecified, F41.9 - Anxiety disorder, unspecified, G20.A1 - Parkinson's disease without dyskinesia, without mention of fluctuations, R10.9 - Unspecified abdominal pain, R44.3 - Hallucinations, unspecified Comprehensive Met. Panel Today D64.9 - Anemia, unspecified, F41.9 - Anxiety disorder, unspecified, G20.A1 - Parkinson's disease without dyskinesia, without mention of fluctuations, R10.9 - Unspecified abdominal pain, R44.3 - Hallucinations, unspecified Magnesium Today D64.9 - Anemia, unspecified, F41.9 - Anxiety disorder, unspecified, G20.A1 - Parkinson's disease without dyskinesia, without mention of fluctuations, R10.9 - Unspecified abdominal pain, R44.3 - Hallucinations, unsp ecified CRP High Sensitivity Today D64.9 - Anemia, unspecified, F41.9 - Anxiety disorder, unspecified, G20.A1 - Parkinson's disease without dyskinesia, without mention of fluctuations, R10.9 - Unspecified abdominal pain, R44.3 - Hallucinations, unspecified Hemoglobin A1c Today D64.9 - Anemia, unspecified, F41.9 - Anxiety disorder, unspecified, G20.A1 - Parkinson's disease without dyskinesia, without mention of fluctuations, R10.9 - Unspecified abdominal pain, R44.3 - Hallucinations, unspecified TSH reflex Free T4 Today D64.9 - Anemia, unspecified, F41.9 - Anxiety disorder, unspecified, G20.A1 - Parkinson's disease without dyskinesia, without mention of fluctuations, R10.9 - Unspecified abdominal pain, R44.3 - Hallucinations, unspecified Syphilis Screen Today D64.9 - Anemia, unspecified, F41.9 - Anxiety disorder, unspecified, G20.A1 - Parkinson's disease without dyskinesia, without mention of fluctuations, R10.9 - Unspecified abdominal pain, R44.3 - Hallucinations, unspecified Lipid Panel with Reflex Today D64.9 - Anemia, unspecified, F41.9 - Anxiety disorder, unspecified, G20.A1 - Parkinson's disease without dyskinesia, without mention of fluctuations, R10.9 - Unspecified abdominal pain, R44.3 - Hallucinations, unspecified HIV Ab/Ag Today D64.9 - Anemia, unspecified, F41.9 - Anxiety disorder, unspecified, G20.A1 - Parkinson's disease without dyskinesia, without mention of fluctuations, R10.9 - Unspecified abdominal pain, R44.3 - Hallucinations, unspecified Ceruloplasmin Today D64.9 - Anemia, unspecified, F41.9 - Anxiety disorder, unspecified, G20.A1 - Parkinson's disease without dyskinesia, without mention of fluctuations, R10.9 - Unspecified abdominal pain, R44.3 - Hallucinations, unspecified Erythrocyte Sedimentation Rate Today D64.9 - Anemia, unspecified, F41.9 - Anxiety disorder, unspecified, G20.A1 - Parkinson's disease without dyskinesia, without mention of fluctuations, R10.9 - Unspecified abdominal pain, R44.3 - Hallucinations, unspecified Methylmalonic Acid Today D64.9 - Anemia, unspecified, F41.9 - Anxiety disorder, unspecified, G20.A1 - Parkinson's disease without dyskinesia, without mention of fluctuations, R10.9 - Unspecified abdominal pain, R44.3 - Hallucinations, unspecified Homocysteine Today D64.9 - Anemia, unspecified, F41.9 - Anxiety disorder, unspecified, G20.A1 - Parkinson's disease without dyskinesia, without mention of fluctuations, R10.9 - Unspecified abdominal pain, R44.3 - Hallucinations, unspecified IRON PROFILE Today D64.9 - Anemia, unspecified, F41.9 - Anxiety disorder, unspecified, G20.A1 - Parkinson's disease without dyskinesia, without mention of fluctuations, R10.9 - Unspecified abdominal pain, R44.3 - Hallucinations, unsp ecified Ferritin Today D64.9 - Anemia, unspecified, F41.9 - Anxiety disorder, unspecified, G20.A1 - Parkinson's disease without dyskinesia, without mention of fluctuations, R10.9 - Unspecified abdominal pain, R44.3 - Hallucinations, unspecified Vitamin B12 and Folate Today D64.9 - Anemia, unspecified, F41.9 - Anxiety disorder, unspecified, G20.A1 - Parkinson's disease without dyskinesia, without mention of fluctuations, R10.9 - Unspecified abdominal pain, R44.3 - Hallucinations, unspecified Vitamin D 25-OH (D2 and D3) Today D64.9 - Anemia, unspecified, F41.9 - Anxiety disorder, unspecified, G20.A1 - Parkinson's disease without dyskinesia, without mention of fluctuations, R10.9 - Unspecified abdominal pain, R44.3 - Hallucinations, unspecified Referrals Neuropsychiatry Referral F32.9 - Major depressive disorder, single episode, unspecified, F41.9 - Anxiety disorder, unspecified, G20.A1 - Parkinson's disease without dyskinesia, without mention of fluctuations, R41.89 - Other symptoms and signs involving cognitive functions and awareness Medications: Changed From magnesium oxide 400 mg PO BEDTIME 90 caps 2RF K59.04 - Chronic idiopathic constipation To magnesium oxide 400 mg PO BEDTIME 90 days 90 caps 1RF K59.04 - Chronic idiopathic constipation From pantoprazole (Protonix) 40 mg PO DAILY 20 tabs 0RF To pantoprazole (Protonix) 40 mg PO DAILY 90 days 90 tabs 1RF Coding Level of Care Code Tele Est Pt Level 4 (79231) Diagnoses Parkinson's disease without dyskinesia or fluctuating manifestations G20.A1 Fluctuating manifestations: without fluctuating manifestations Anxiety F41.9 Compulsive behavior R46.89 Drug-induced constipation K59.03 Constipation type: drug induced constipation
== END 2024-09-05 10:58 | disposition home or self-care (01) ==
PROVIDERS: Visit Provider Nurse Practitioner Family
DX: G20.A1 Parkinson's disease without dyskinesia, without mention of fluctuations (principal); F41.9 Anxiety disorder, unspecified; K59.03 Drug induced constipation; R46.89 Other symptoms and signs involving appearance and behavior
CPT/HCPCS: 98016